=== PATIENT | male | born 1935 | race Caucasian/White ===

== ENCOUNTER → 2016-07-04 | Outpatient (REF) | payer OTHER ==
[~2016-07-04] MED LIST: /AUGM875TA OR; /TAMS4CA OR; ACET65TA OR; ASPI81TA83 OR; CAPT12.5 OR; CARV6.25 OR; COLA100C2 OR; DIFL200T OR; FLAG500T OR; GLIM1TAB OR; INSULANT SC; LANO0.252 OR; MAGN500T2 OR; POTA20TA2 PO; POTA75TA OR; PROZ20CA OR; SIMV10TA2 OR; SPIR25TA2 OR; SYNT125T OR; VICO5TAB OR; VITAMIN D50000 UNT OR; indapamide OR; januvia OR
[2016-07-04 14:18] LABS: ALBUMIN 3.4 GM/DL (3.2-5.2); CALCIUM LEVEL 9.1 MG/DL (8.8-10.2); CREATININE FOR GFR 1.45 MG/DL (0.70-1.30); PHOSPHORUS LEVEL 3.3 MG/DL (2.5-4.9); POTASSIUM SERUM 4.4 MEQ/L (3.5-5.1)
== END ==
LOC: M LABDRAW1 13:28
PROVIDERS: ATTEND Physician Assistant
DX: I50.42 Chronic combined systolic (congestive) and diastolic (congestive) heart failure (principal)

== ENCOUNTER → 2016-09-15 | Outpatient (REF) | payer OTHER ==
[2016-09-15 13:53] LABS: ALBUMIN 3.4 GM/DL (3.2-5.2); ALBUMIN/GLOBULIN RATIO 1.06 (1.00-1.93); BILIRUBIN,TOTAL 1.5 MG/DL (0.2-1.0); CALCIUM LEVEL 8.8 MG/DL (8.8-10.2); CREATININE FOR GFR 1.4 MG/DL (0.70-1.30); FREE T4 1.43 NG/DL (0.76-1.46); POTASSIUM SERUM 4.5 MEQ/L (3.5-5.1); TOTAL PROTEIN 6.6 GM/DL (6.4-8.2)
== END ==
LOC: M LABDRAW1 12:03
PROVIDERS: ATTEND Emergency Medicine
DX: E11.9 Type 2 diabetes mellitus without complications (principal); I10 Essential (primary) hypertension; E78.2 Mixed hyperlipidemia; E55.9 Vitamin D deficiency, unspecified; E03.9 Hypothyroidism, unspecified

== ENCOUNTER → 2016-12-19 | Outpatient (REF) | payer OTHER ==
[~2016-12-19] MED LIST changes: +AMIO200T PO; +ASPI81TA85 PO; +CARV6.25 PO; +DIGO0.12 PO; +FLOM5CAP PO; +FLUO20CA19 PO; +GLIM4TAB PO; +INDA25TAB PO; +INSULADS INJ; +INVO300T PO; +JANU100T PO; +LEVO100T5 PO; +LEVO125T4 PO; +LISI-542 PO; +MAGN1TAB25 PO; +SIMV40TA2 PO; +SPIR25TA2 PO; +TYLE325T5 PO; +VITA20008 PO
== END ==
LOC: M LABDRAW1 07:36
PROVIDERS: ATTEND Emergency Medicine
DX: E11.9 Type 2 diabetes mellitus without complications (principal)

== ENCOUNTER → 2017-01-12 | Outpatient (CLI) | payer OTHER ==
--- NOTE | 2017-01-13 01:54 | REP ---
Clinical: Hip pain and sciatica. Technique: Neutral and frog lateral views of the right hip. Findings: Moderate arthritic changes include increased sclerosis and subtle spurring along the acetabular roof with associated joint space narrowing. The femoral head/neck appears normal. Enthesopathy along the visualized pelvis and femoral trochanter noted. No acute fracture dislocation. Vascular calcifications identified. Impression: Moderate arthritic changes. Signed by Kofi Lutz MD 01/13/2017 01:45 A
--- NOTE | 2017-01-13 01:55 | REP ---
Clinical: Lumbar pain. Lumbago. Technique: AP, lateral, bilateral oblique and coned-down views of the lumbosacral spine. Findings: Straightening of normal lordosis is appreciated along with moderate/advanced multilevel degenerative disc osteophyte complexes. Findings include osteophytosis, endplate sclerosis, disc space narrowing and hypertrophic facet changes which are most pronounced at the L3-4, and L5-S1 levels. No acute fracture / compression injury or subluxation. Impression: Moderate/advanced multilevel degenerative changes. Signed by Kofi Lutz MD 01/13/2017 01:46 A
--- NOTE | 2017-01-13 01:56 | REP ---
Clinical: Hip pain and sciatica. Technique: Neutral and frog lateral views of the left hip. Findings: Moderate arthritic changes include increased sclerosis and subtle spurring along the acetabular roof with associated joint space narrowing. The femoral head/neck appears normal. Enthesopathy along the visualized pelvis and femoral trochanter noted. No acute fracture dislocation. Vascular calcifications identified. Impression: Moderate arthritic changes. Signed by Kofi Lutz MD 01/13/2017 01:46 A
== END ==
LOC: M WUC 16:28
PROVIDERS: ATTEND Physician Assistant
DX: M54.41 Lumbago with sciatica, right side (principal); M16.0 Bilateral primary osteoarthritis of hip; M25.78 Osteophyte, vertebrae

== ENCOUNTER → 2017-02-02 | Outpatient (REF) | payer OTHER ==
[2017-02-02 12:16] LABS: ALBUMIN 3.5 GM/DL (3.2-5.2); CALCIUM LEVEL 9.1 MG/DL (8.8-10.2); CREATININE FOR GFR 1.69 MG/DL (0.70-1.30); GLOMERULAR FILTRATION RATE 41.9 (>42); MAGNESIUM LEVEL 2.5 MG/DL (1.8-2.4); PHOSPHORUS LEVEL 3.4 MG/DL (2.5-4.9); POTASSIUM SERUM 4.7 MEQ/L (3.5-5.1)
== END ==
LOC: M LABDRAW1 11:28
PROVIDERS: ATTEND Physician Assistant
DX: I50.42 Chronic combined systolic (congestive) and diastolic (congestive) heart failure (principal); I47.2 Ventricular tachycardia

== ENCOUNTER 2017-02-06 07:18 | Inpatient (IN) | payer OTHER, MEDICARE ==
[~2017-02-06] VITALS: Ht 175.3 cm; Wt 115.3 kg
[~2017-02-06 07:18] MED LIST changes: -AMIO200T PO; -ASPI81TA85 PO; -CARV6.25 PO; -DIGO0.12 PO; -FLOM5CAP PO; -FLUO20CA19 PO; -GLIM4TAB PO; -INDA25TAB PO; -INSULADS INJ; -INVO300T PO; -JANU100T PO; -LEVO100T5 PO; -LEVO125T4 PO; -LISI-542 PO; -MAGN1TAB25 PO; -SIMV40TA2 PO; -SPIR25TA2 PO; -TYLE325T5 PO; -VITA20008 PO
[2017-02-06] MEDS ORDERED: ONDANSETRON 4MG/2ML VIAL (J2405) As Ordered ONE (07:39)
[2017-02-06] MEDS ORDERED: NS 500 ML IV ONE (07:45)
[2017-02-06] MEDS ORDERED: ONDANSETRON 4MG/2ML VIAL (J2405) IV ONE (07:45)
[2017-02-06 08:08] LABS: BASO % 0.3 % (0.0-1.0); EOS # 0.1 K/mm3 (0.0-0.50); EOS % 0.8 % (0.0-3.0); LARGE UNSTAINED CELL # 0.3 K/mm3 (0.0-0.4); LARGE UNSTAINED CELL % 2.5 % (0.0-4.0); LYMPH # 1.6 K/mm3 (1.5-4.5); LYMPH % 11.2 % (24.0-44.0); MEAN CORPUSCULAR HEMOGLOBIN 30.9 pg (27.0-33.0); MEAN CORPUSCULAR HGB CONC 34.2 g/dl (32.0-36.5); MEAN CORPUSCULAR VOLUME 90.3 fl (80.0-96.0); MONO # 0.9 K/mm3 (0.0-0.8); MONO % 7.5 % (0.0-5.0); NEUTROPHILS # 9.4 K/mm3 (1.8-7.7); NEUTROPHILS % 77.8 % (36.0-66.0); PLATELET COUNT, AUTOMATED 208 k/mm3 (150-450); RED CELL DISTRIBUTION WIDTH 13.5 % (11.5-14.5); WHITE BLOOD COUNT 12.1 K/mm3 (4.0-10.0)
[2017-02-06 08:22] LABS: INR 1.01
[2017-02-06 08:32] LABS: ALBUMIN/GLOBULIN RATIO 1.03 (1.00-1.93); ALKALINE PHOSPHATASE 68 U/L (45-117); ALT/SGPT 35 U/L (12-78); ANION GAP 14 MEQ/L (8-16); AST/SGOT 21 U/L (15-37); BILIRUBIN,DIRECT 0.4 MG/DL (0.0-0.2); BILIRUBIN,TOTAL 1.9 MG/DL (0.2-1.0); BLOOD UREA NITROGEN 40 MG/DL (7-18); CALCIUM LEVEL 9.7 MG/DL (8.8-10.2); CARBON DIOXIDE LEVEL 21 MEQ/L (21-32); CHLORIDE LEVEL 101 MEQ/L (98-107); CREATININE FOR GFR 2.09 MG/DL (0.70-1.30); GLOMERULAR FILTRATION RATE 32.8 (>42); GLUCOSE, FASTING 210 MG/DL (83-110); POTASSIUM SERUM 4.7 MEQ/L (3.5-5.1); SODIUM LEVEL 136 MEQ/L (136-145); TOTAL PROTEIN 7.9 GM/DL (6.4-8.2)
[2017-02-06] MEDS ORDERED: LEVEMIR (INSULIN DETEMIR) 1 UNITS/0.01ML SC SCH (09:00)
--- NOTE | 2017-02-06 10:43 | ECGEPIP ---
Stationary ECG Study [facility] - ED Test Date: 2017-02-06 Pat Name: ABHI DYE Department: Room: - Gender: M Ui U[employer] Developer: sb : [id number] Requested By: MARIJA Syed Order Number: [id number] Reading MD: Porsha Valderrama Measurements Intervals Irons Rate: 85 P: 45 CO: 158 QRS: 182 QRSD: 246 T: 76 QT: 517 QTc: 616 Interpretive Statements ELECTRONIC VENTRICULAR PACEMAKER ABNORMAL RHYTHM ECG SIMILAR 03/25/13 Electronically Signed On 02-06-2017 10:42:58 EDT by Porsha Valderrama
[2017-02-06] MEDS ORDERED: ONDANSETRON 4MG/2ML VIAL (J2405) IV PRN (10:45)
[2017-02-06] MEDS ORDERED: ACETAMINOPHEN TAB 650MG DOSE (2X325MG) PO PRN (10:45)
[2017-02-06] MEDS ORDERED: SODIUM CHLORIDE 0.9% 1000 ML IV ONE ×2 (10:45→16:15)
[2017-02-06] MEDS ORDERED: CARV6.25 PO (10:53)
[2017-02-06] MEDS ORDERED: ASPI81TA85 PO (10:53)
[2017-02-06] MEDS ORDERED: TYLE325T5 PO (10:53)
[2017-02-06] MEDS ORDERED: DIGO0.12 PO (10:53)
[2017-02-06] MEDS ORDERED: LEVO125T4 PO (10:56)
[2017-02-06] MEDS ORDERED: INSULADS INJ (10:56)
[2017-02-06] MEDS ORDERED: GLIM4TAB PO (10:56)
[2017-02-06] MEDS ORDERED: FLUO20CA19 PO (10:56)
[2017-02-06] MEDS ORDERED: SIMV40TA2 PO (10:58)
[2017-02-06] MEDS ORDERED: VITA20008 PO (10:58)
[2017-02-06] MEDS ORDERED: FLOM5CAP PO (10:58)
[2017-02-06] MEDS ORDERED: INDA25TAB PO (10:59)
[2017-02-06] MEDS ORDERED: JANU100T PO (10:59)
[2017-02-06] MEDS ORDERED: NS 1,500 ML IV SCH (11:00)
[2017-02-06] MEDS ORDERED: AMIO200T PO (11:01)
[2017-02-06] MEDS ORDERED: LISI-542 PO (11:01)
[2017-02-06] MEDS ORDERED: INVO300T PO (11:01)
[2017-02-06] MEDS ORDERED: MAGN1TAB25 PO (11:01)
[2017-02-06] MEDS ORDERED: SPIR25TA2 PO (11:01)
[2017-02-06 11:57] VITALS: BP 118/66
[2017-02-06] MEDS ORDERED: GLUCOSE 4 GM CHEW TABLET PO PRN (13:00)
[2017-02-06] MEDS ORDERED: GLUCAGON FOR INJ 1 MG VIAL (J1610) SC PRN (13:00)
[2017-02-06] MEDS ORDERED: DEXTROSE 50% 50 ML SYRINGE IV PRN (13:00)
[2017-02-06] MEDS: HEPARIN SOD (PORCINE) 5000 UNITS/ML VIAL SC SCH ×2 (13:47→21:23)
[2017-02-06 14:00] VITALS: BP 128/69
[2017-02-06] MEDS ORDERED: NYSTATIN CREAM 15 GM TOP PRN (14:45)
--- NOTE | 2017-02-06 16:35 | HPEPDOC ---
General Date of Admission Feb 06, 2017 at 10:37 Primary Care Physician: MARCO GOMEZ MD Chief Complaint The patient is a 81-year-old male admitted with a reason for visit of Diarrhea. History of Present Illness 81-year-old male with past medical history of hypertension, diabetes mellitus, dyslipidemia, atrial fibrillation not on anticoagulation, systolic congestive heart failure with an EF of 20% in 2012 status post ICD, CAD, hypothyroidism, BPH, and chronic kidney disease presents to the ER with a chief complaint of multiple episodes of diarrhea over the last 3 days. The patient states that he has been having at least 10 loose, nonbloody bowel movements daily for the last 3 days. He denies any associated fevers, chills, or abdominal pain. He reports that this culminated today with 3 episodes of nausea and vomiting as well. He denies taking any antibiotics recently, any sick contacts, or any ingestion of any foreign foods. The patient denies noting any blood in his vomitus or stools or any dark color stools. The patient denies any other acute complaints at this time. In the ER, the patient was noted to have an elevated white count of 12K, and acute kidney injury superimposed on chronic kidney disease. The patient will be admitted to the hospitalist service for further evaluation and management. Home Medications Scheduled Amiodarone HCl (Amiodarone HCl) 200 Mg Tab, 200 MG PO DAILY, (Reported) Aspirin (Aspir-81) 81 Mg Tab, 81 MG PO DAILY, (Reported) Canagliflozin (Invokana) 300 Mg Tab, 300 MG PO DAILY, (Reported) Carvedilol (Carvedilol) 6.25 Mg Tab, 6.25 MG PO BID, (Reported) Cholecalciferol (Vitamin D3) 2,000 Unit Tab, 2,000 UNIT PO DAILY, (Reported) Digoxin (Digoxin) 0.125 Mg Tab, 0.125 MG PO DAILY, (Reported) Fluoxetine Hcl (Fluoxetine HCl) 20 Mg Cap, 20 MG PO DAILY, (Reported) Glimepiride (Glimepiride) 4 Mg Tab, 8 MG PO DAILY, (Reported) Indapamide (Indapamide) 2.5 Mg Tab, 2.5 MG PO DAILY, (Reported) Insulin Glargine (Lantus) 100 Unit/Ml Inj, 65 UNIT INJ DAILY, (Reported) Levothyroxine Sodium (Synthroid) 125 Mcg Tab, 125 MCG PO DAILY, (Reported) Lisinopril (Lisinopril) 5 Mg Tab, 5 MG PO DAILY, (Reported) Magnesium Oxide (Magnesium) 400 Mg Tab, 1,200 MG PO BID, (Reported) Simvastatin - High Dose (Simvastatin) 40 Mg Tab, 40 MG PO QHS, (Reported) Sitagliptin Phosphate (Januvia) 100 Mg Tab, 100 MG PO DAILY, (Reported) Spironolactone (Spironolactone) 25 Mg Tab, 12.5 MG PO DAILY, (Reported) Tamsulosin Hydrochloride (Flomax) 0.4 Mg Cap, 0.4 MG PO DAILY, (Reported) Scheduled PRN Acetaminophen (Tylenol) 325 Mg Tab, 325 MG PO QID PRN for PAIN, (Reported) Allergies Coded Allergies: Azithromycin (Verified Allergy, Unknown, 09/20/12) Past Medical History Medical History As noted in HPI. Surgical History ICD placement in 2011, lateral internal sphincterotomy, rectal fistula repair Family History Significant Family History: No pertinent family hx Social History * Smoker: Denies Alcohol: Denies Drugs: denies Ambulates with a cane, lives by himself, is functionally independent. Daughter checks up on him from time to time. Retired from the [employer] business. Review of Symptoms Other systems 10 point review of systems negative unless otherwise specified in HPI. Physical Examination General Exam: Positive: Alert, Cooperative, No Acute Distress ENT Exam: Positive: Atraumatic, Mucous membr. moist/pink Neck Exam: Negative: JVD Chest Exam: Positive: Clear to auscultation, Normal air movement Heart Exam: Positive: Rate Normal, Normal S1, Normal S2 Abdomen Exam: Positive: Soft, Negative: Tenderness Extremity Exam: Negative: Tenderness, Swelling Psych Exam: Positive: Oriented x 3 Vital Signs Vital Signs Date Time Temp Pulse Resp B/P (MAP) Pulse Ox O2 Delivery O2 Flow Rate FiO2 02/06/17 14:00 96.3 78 18 128/69 (88) 97 Room Air Laboratory Data Labs 24H Laboratory Tests 2 02/06/17 07:53: White Blood Count 12.1H, Red Blood Count 6.35H, Hemoglobin 19.6H, Hematocrit 57.4H, Mean Corpuscular Volume 90.3, Mean Corpuscular Hemoglobin 30.9, Mean Corpuscular Hemoglobin Concent 34.2, Red Cell Distribution Width 13.5, Platelet Count 208, Neutrophils (%) (Auto) 77.8H, Lymphocytes (%) (Auto) 11.2L, Monocytes (%) (Auto) 7.5H, Eosinophils (%) (Auto) 0.8, Basophils (%) (Auto) 0.3 , Neutrophils # (Auto) 9.4H, Lymphocytes # (Auto) 1.6, Monocytes # (Auto) 0.9H, Eosinophils # (Auto) 0.1, Basophils # (Auto) 0.0, Large Unclassified Cells % 2.5 , Large Unclassified Cells # 0.3, Prothrombin Time 13.4, Prothromb Time International Ratio 1.01, Anion Gap 14, Glomerular Filtration Rate 32.8L, Calcium Level 9.7, Aspartate Amino Transf (AST/SGOT) 21, Alanine Aminotransferase (ALT/SGPT) 35, Alkaline Phosphatase 68, Total Bilirubin 1.9H, Direct Bilirubin 0.4H, Total Creatine Kinase 101, Creatine Kinase MB 2.7, Creatine Kinase MB Relative Index 2.67, Troponin I < 0.02, Total Protein 7.9, Albumin 4.0, Albumin/Globulin Ratio 1.03, Lipase 124 02/06/17 07:54: Lactic Acid Level 3.2*H 02/06/17 12:13: Lactic Acid Followup at 4 Hours 2.6*H 02/06/17 13:07: Bedside Glucose (Misc Panel) 155H 02/06/17 14:28: Urine Appearance HAZY, Urine Color YELLOW, Urine pH 5.0, Urine Specific [place] 1.027, Urine Protein NEGATIVE, Urine Glucose (UA) 3+H, Urine Ketones NEGATIVE, Urine Urobilinogen 0.2, Urine Bilirubin NEGATIVE, Urine Leukocyte Esterase NEGATIVE, Urine Blood NEGATIVE, Urine Nitrite NEGATIVE, Urine WBC (Auto) 1, Urine RBC (Auto) 2, Urine Hyaline Casts (Auto) 8, Urine Bacteria (Auto) NEGATIVE , Urine Squamous Epithelial Cells 0, Urine Mucus (Auto) SMALL, Urine Sperm (Auto ) CBC/BMP Laboratory Tests 02/06/17 07:53 Red Blood Count 6.35 H, Mean Corpuscular Volume 90.3, Mean Corpuscular Hemoglobin 30.9, Mean Corpuscular Hemoglobin Concent 34.2, Red Cell Distribution Width 13.5, Neutrophils (%) (Auto) 77.8 H, Lymphocytes (%) (Auto) 11.2 L, Monocytes (%) (Auto) 7.5 H, Eosinophils (%) (Auto) 0.8, Basophils (%) ( Auto) 0.3, Neutrophils # (Auto) 9.4 H, Lymphocytes # (Auto) 1.6, Monocytes # ( Auto) 0.9 H, Eosinophils # (Auto) 0.1, Basophils # (Auto) 0.0 Microbiology Microbiology 02/06/17 Blood Culture, Received Pending 02/06/17 Blood Culture, Received Pending 02/06/17 Gastrointestinal Tract Panel (PCR), Received Pending Plan / VTE VTE Prophylaxis Ordered?: Yes Plan Plan Intractable nausea, vomiting, diarrhea We will admit the patient to med/surge GI panel ordered IV fluid hydration Lactic acid level noted to be 3.2, likely 2/2 volume depletion Abdomen soft, non-tender, non-distended--with no complaints of abdominal pain in history Patient does not have risk factors for C. Diff (Recent Abx use, sick contacts, recent hospitalization). However we will send for stool studies; Viral Gasteroenteritis vs C. Diff Acute Kidney Injury Superimposed on CKD Stage IIIB Baseline serum creatinine noted to be between 1.35-1.45 Serum creatinine 2.1 on admission-likely secondary to volume depletion from diarrhea We will hold nephrotoxins at this time IV fluid hydration ordered We will continue to monitor the patient's BMP Lactic acidosis likely 2/2 above IV fluid hydration ordered We will continue to monitor patient's lactic acid levels History of systolic congestive heart failure, with severe reduction of EF (20%) on ECHO in 2011, CAD History of ICD placement We will withhold the patient's diuretic therapy at this time as the patient is significantly volume depleted IV fluid hydration ordered with caution of the patient's history of systolic CHF in mind Patient follows with Dr. 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
[2017-02-06] MEDS: HumaLOG INSULIN (NovoLOG) PER UNIT SC SCH ×2 (18:23→20:49)
[2017-02-06] MEDS: ASPIRIN 81 MG ENTERIC TAB PO SCH (18:25)
[2017-02-06] MEDS: VITAMIN D 1,000 INTERNATIONAL UNITS TABLET PO SCH (18:25)
[2017-02-06] MEDS: FLUoxetine 20 MG CAP PO SCH (18:25)
[2017-02-06] MEDS: AMIODARONE 200 MG TAB (PACERONE) PO SCH (18:26)
[2017-02-06] MEDS ORDERED: LOPERAMIDE 2 MG CAP PO PRN (20:15)
[2017-02-06] MEDS: SIMVASTATIN 40 MG TAB PO SCH (21:23)
[2017-02-06] MEDS: CARVedilol 6.25 MG TAB PO SCH (21:23)
[2017-02-06 22:00] VITALS: BP 130/57
[2017-02-07] MEDS: HEPARIN SOD (PORCINE) 5000 UNITS/ML VIAL SC SCH ×3 (05:50→22:18)
[2017-02-07 06:00] VITALS: BP 125/55
[2017-02-07] MEDS ORDERED: LEVOTHYROXINE 125MCG TABLET (0.125MG) PO SCH (06:00)
[2017-02-07 06:03] LABS: BASO % 0.2 % (0.0-1.0); EOS # 0.2 K/mm3 (0.0-0.50); EOS % 2.6 % (0.0-3.0); LARGE UNSTAINED CELL # 0.2 K/mm3 (0.0-0.4); LARGE UNSTAINED CELL % 2.5 % (0.0-4.0); LYMPH % 12.5 % (24.0-44.0); MEAN CORPUSCULAR HEMOGLOBIN 30.4 pg (27.0-33.0); MEAN CORPUSCULAR HGB CONC 33.1 g/dl (32.0-36.5); MEAN CORPUSCULAR VOLUME 91.8 fl (80.0-96.0); MONO # 0.7 K/mm3 (0.0-0.8); MONO % 10.4 % (0.0-5.0); NEUTROPHILS % 71.9 % (36.0-66.0); PLATELET COUNT, AUTOMATED 162 k/mm3 (150-450); RED CELL DISTRIBUTION WIDTH 13.4 % (11.5-14.5); WHITE BLOOD COUNT 6.9 K/mm3 (4.0-10.0)
[2017-02-07 06:20] LABS: BILIRUBIN,DIRECT 0.4 MG/DL (0.0-0.2); BILIRUBIN,TOTAL 2.2 MG/DL (0.2-1.0); CALCIUM LEVEL 8.4 MG/DL (8.8-10.2); CREATININE FOR GFR 1.59 MG/DL (0.70-1.30); GLOMERULAR FILTRATION RATE 44.9 (>42); MAGNESIUM LEVEL 2.2 MG/DL (1.8-2.4); POTASSIUM SERUM 4.7 MEQ/L (3.5-5.1); TOTAL PROTEIN 6.6 GM/DL (6.4-8.2)
[2017-02-07 06:28] LABS: ALBUMIN/GLOBULIN RATIO 0.78 (1.00-1.93)
[2017-02-07 06:32] LABS: ALBUMIN 2.9 GM/DL (3.2-5.2)
[2017-02-07 06:35] LABS: DIGOXIN LEVEL 0.9 NG/ML (0.5-2.0); FREE T4 1.82 NG/DL (0.76-1.46)
[2017-02-07] MEDS: HumaLOG INSULIN (NovoLOG) PER UNIT SC SCH ×4 (09:08→20:48)
[2017-02-07] MEDS: ASPIRIN 81 MG ENTERIC TAB PO SCH (09:11)
[2017-02-07] MEDS: AMIODARONE 200 MG TAB (PACERONE) PO SCH (09:11)
[2017-02-07] MEDS: CARVedilol 6.25 MG TAB PO SCH ×2 (09:11→20:47)
[2017-02-07] MEDS: DIGOXIN 0.125 MG TAB PO SCH (09:11)
[2017-02-07] MEDS: VITAMIN D 1,000 INTERNATIONAL UNITS TABLET PO SCH (09:11)
[2017-02-07] MEDS: FLUoxetine 20 MG CAP PO SCH (09:11)
[2017-02-07 14:00] VITALS: BP 96/53
--- NOTE | 2017-02-07 14:13 | IPNPDOC ---
Subjective Date Seen The patient was seen on 02/07/17. Subjective Chief Complaint/HPI Patient seen and examined at the bedside. States that he is feeling much better today, and notes that he has not had a loose bowel movement since 2 AM yesterday morning. Denies any abdominal pain, and notes that he is able to tolerate a diet without any problems this morning. Objective Physical Examination General Exam: Positive: Alert, Cooperative, No Acute Distress ENT Exam: Positive: Atraumatic, Mucous membr. moist/pink Neck Exam: Negative: JVD Chest Exam: Positive: Clear to auscultation, Normal air movement Heart Exam: Positive: Rate Normal, Normal S1, Normal S2 Abdomen Exam: Positive: Soft, Negative: Tenderness Extremity Exam: Negative: Tenderness, Swelling Psych Exam: Positive: Oriented x 3 Assessment /Plan Plan/VTE VTE Prophylaxis Ordered?: Yes Plan Intractable nausea, vomiting, diarrhea, resolved Patient notes that he is feeling much better this morning and tolerated his breakfast without any issues GI panel negative IV fluid discontinued Abdomen soft, non-tender, non-distended--with no complaints of abdominal pain today Diet advanced to Carb Consistent We will cont to monitor the patient's progress Acute Kidney Injury Superimposed on CKD Stage IIIB Baseline serum creatinine noted to be between 1.35-1.45 Serum creatinine 2.1-->1.59 We will hold nephrotoxins at this time Encourage PO Hydration We will continue to monitor the patient's BMP Lactic acidosis likely 2/2 above, resolved s/p IV fluid hydration History of systolic congestive heart failure, with severe reduction of EF (20%) on ECHO in 2011, CAD History of ICD placement Patient appears euvolemic at this time following hydration Patient follows with Dr. 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 Continue amiodarone, digoxin, Coreg, aspirin Diabetes mellitus We will hold the patient's basal insulin at this time as his blood sugar levels have been running on the lower side Advanced to Carb Consistent diet today Insulin sliding scale ordered for additional coverage Dyslipidemia Continue statin Hypothyroidism TSH level noted to be low, with elevated T4 level Levothyroxine dose changed to 100 mcg--I have advised the patient to follow up as an outpatient for repeat lab work in 6-8 weeks Depression, stable Continue fluoxetine DVT prophylaxis Heparin subcutaneously Dispo--Anticipate D/C in the AM pending continued clinical improvement [facility] Signs/I&O Vital Signs Date Time Temp Pulse Resp B/P (MAP) Pulse Ox O2 Delivery O2 Flow Rate FiO2 02/07/17 09:11 65 02/07/17 09:11 125/55 02/07/17 06:00 97.3 18 96 Room Air I&O- Last 24 Hours up to 6 AM 02/07/17 05:59 Intake Total 2720 ml Output Total 775 ml Balance 1945 ml Laboratory Data 24H LABS Laboratory Tests 2 02/06/17 14:28: Urine Appearance HAZY, Urine Color YELLOW, Urine pH 5.0, Urine Specific [place] 1.027, Urine Protein NEGATIVE, Urine Glucose (UA) 3+H, Urine Ketones NEGATIVE, Urine Urobilinogen 0.2, Urine Bilirubin NEGATIVE, Urine Leukocyte Esterase NEGATIVE, Urine Blood NEGATIVE, Urine Nitrite NEGATIVE, Urine WBC (Auto) 1, Urine RBC (Auto) 2, Urine Hyaline Casts (Auto) 8, Urine Bacteria (Auto) NEGATIVE , Urine Squamous Epithelial Cells 0, Urine Mucus (Auto) SMALL, Urine Sperm (Auto ) 02/06/17 16:08: Lactic Acid Level 2.6*H 02/06/17 16:23: Bedside Glucose (Misc Panel) 150H 02/06/17 20:32: Bedside Glucose (Misc Panel) 115H 02/06/17 20:48: Lactic Acid Followup at 4 Hours 2.0 02/07/17 05:32: White Blood Count 6.9, Red Blood Count 5.56, Hemoglobin 16.9#, Hematocrit 51.1, Mean Corpuscular Volume 91.8, Mean Corpuscular Hemoglobin 30.4, Mean Corpuscular Hemoglobin Concent 33.1, Red Cell Distribution Width 13.4, Platelet Count 162, Neutrophils (%) (Auto) 71.9H, Lymphocytes (%) (Auto) 12.5L, Monocytes (%) (Auto) 10.4H, Eosinophils (%) (Auto) 2.6, Basophils (%) (Auto) 0.2 , Neutrophils # (Auto) 5.0, Lymphocytes # (Auto) 1.0L, Monocytes # (Auto) 0.7, Eosinophils # (Auto) 0.2, Basophils # (Auto) 0.0, Large Unclassified Cells % 2.5 , Large Unclassified Cells # 0.2, Anion Gap 9, Glomerular Filtration Rate 44.9, Calcium Level 8.4L, Magnesium Level 2.2, Aspartate Amino Transf (AST/SGOT) 14L, Alanine Aminotransferase (ALT/SGPT) 22, Alkaline Phosphatase 51, Total Bilirubin 2.2H, Direct Bilirubin 0.4H, Total Protein 6.6, Albumin 2.9#L, Albumin /Globulin Ratio 0.78L, Thyroid Stimulating Hormone (TSH) 0.033L, Free Thyroxine 1.82H, Digoxin Level 0.9 02/07/17 11:28: Bedside Glucose (Misc Panel) 129H CBC/BMP Laboratory Tests 02/07/17 05:32 Red Blood Count 5.56, Mean Corpuscular Volume 91.8, Mean Corpuscular Hemoglobin 30.4, Mean Corpuscular Hemoglobin Concent 33.1, Red Cell Distribution Width 13.4 , Neutrophils (%) (Auto) 71.9 H, Lymphocytes (%) (Auto) 12.5 L, Monocytes (%) ( Auto) 10.4 H, Eosinophils (%) (Auto) 2.6, Basophils (%) (Auto) 0.2, Neutrophils # (Auto) 5.0, Lymphocytes # (Auto) 1.0 L, Monocytes # (Auto) 0.7, Eosinophils # (Auto) 0.2, Basophils # (Auto) 0.0 Microbiology Microbiology 02/06/17 Blood Culture - Preliminary, Resulted No growth after 24 hours . All specim... 02/06/17 Blood Culture - Preliminary, Resulted No growth after 24 hours . All specim... 02/06/17 Gastrointestinal Tract Panel (PCR) - Final, Complete THONG WRIGHT MD Feb 07, 2017 14:13
[2017-02-07] MEDS: SIMVASTATIN 40 MG TAB PO SCH (20:47)
[2017-02-07 20:55] VITALS: BP 130/66
[2017-02-08 05:40] VITALS: BP 132/69
[2017-02-08] MEDS: HEPARIN SOD (PORCINE) 5000 UNITS/ML VIAL SC SCH (05:48)
[2017-02-08] MEDS ORDERED: LEVOTHYROXINE 100MCG TABLET (0.1MG) PO SCH (06:00)
[2017-02-08 06:23] LABS: BASO % 0.4 % (0.0-1.0); EOS # 0.3 K/mm3 (0.0-0.50); EOS % 4.3 % (0.0-3.0); LARGE UNSTAINED CELL # 0.2 K/mm3 (0.0-0.4); LARGE UNSTAINED CELL % 3.1 % (0.0-4.0); LYMPH # 1.5 K/mm3 (1.5-4.5); LYMPH % 18.7 % (24.0-44.0); MEAN CORPUSCULAR HEMOGLOBIN 30.3 pg (27.0-33.0); MEAN CORPUSCULAR VOLUME 91.9 fl (80.0-96.0); MONO # 0.8 K/mm3 (0.0-0.8); MONO % 12.5 % (0.0-5.0); NEUTROPHILS # 4.1 K/mm3 (1.8-7.7); PLATELET COUNT, AUTOMATED 162 k/mm3 (150-450); RED CELL DISTRIBUTION WIDTH 13.4 % (11.5-14.5); WHITE BLOOD COUNT 6.7 K/mm3 (4.0-10.0)
[2017-02-08 06:43] LABS: CALCIUM LEVEL 8.5 MG/DL (8.8-10.2); CREATININE FOR GFR 1.44 MG/DL (0.70-1.30); GLOMERULAR FILTRATION RATE 50.4 (>42); MAGNESIUM LEVEL 1.9 MG/DL (1.8-2.4); POTASSIUM SERUM 4.4 MEQ/L (3.5-5.1)
[2017-02-08] MEDS: AMIODARONE 200 MG TAB (PACERONE) PO SCH (08:04)
[2017-02-08] MEDS: HumaLOG INSULIN (NovoLOG) PER UNIT SC SCH (08:04)
[2017-02-08] MEDS: ASPIRIN 81 MG ENTERIC TAB PO SCH (08:04)
[2017-02-08] MEDS: VITAMIN D 1,000 INTERNATIONAL UNITS TABLET PO SCH (08:04)
[2017-02-08] MEDS: FLUoxetine 20 MG CAP PO SCH (08:05)
[2017-02-08 08:07] VITALS: BP 132/69
[2017-02-08] MEDS: CARVedilol 6.25 MG TAB PO SCH (08:07)
[2017-02-08] MEDS: DIGOXIN 0.125 MG TAB PO SCH (08:07)
[2017-02-08] MEDS ORDERED: LEVO100T5 PO (10:01)
--- NOTE | 2017-02-08 15:13 | DS.PDOC ---
Discharge Summary General Date of Admission Feb 06, 2017 at 10:37 Date of Discharge 02/08/17 Discharge Summary PROCEDURES PERFORMED DURING STAY: None. ADMITTING/DISCHARGE DIAGNOSES: Intractable nausea, vomiting, diarrhea Lactic acidosis likely 2/2 above Acute Kidney Injury Superimposed on CKD Stage IIIB History of systolic congestive heart failure, with severe reduction of EF (20%) on ECHO in 2011, CAD Atrial fibrillation, stable Diabetes mellitus COMPLICATIONS/CHIEF COMPLAINT: Diarrhea. HISTORY OF PRESENT ILLNESS: . 81-year-old male with past medical history of hypertension, diabetes mellitus, dyslipidemia, atrial fibrillation not on anticoagulation, systolic congestive heart failure with an EF of 20% in 2012 status post ICD, CAD, hypothyroidism, BPH, and chronic kidney disease presents to the ER with a chief complaint of multiple episodes of diarrhea over the last 3 days. The patient states that he has been having at least 10 loose, nonbloody bowel movements daily for the last 3 days. He denies any associated fevers, chills, or abdominal pain. He reports that this culminated today with 3 episodes of nausea and vomiting as well. He denies taking any antibiotics recently, any sick contacts, or any ingestion of any foreign foods. The patient denies noting any blood in his vomitus or stools or any dark color stools. The patient denies any other acute complaints at this time. In the ER, the patient was noted to have an elevated white count of 12K, and acute kidney injury superimposed on chronic kidney disease. The patient will be admitted to the hospitalist service for further evaluation and management. During hospitalization, the patient received IV fluid hydration. Stool studies came back negative for any acute infections. The patient's diarrhea subsequently subsided. The patient no longer had any complaints of nausea or vomiting. The patient was started on a clear liquid diet and advance as tolerated. At this time, the patient states that his nausea, vomiting, and diarrhea have completely resolved and that he is eager to return home. Of note, the patient was noted to have a low TSH level and an elevated free T4 level. I have reduced the patient's supplemental levothyroxine dose and asked the patient to follow-up with his primary care physician for repeat lab work and further titration of medication as indicated. He is to follow-up with his primary care physician within one week. He has been consulted to return to the ER for any acute emergencies. DISCHARGE MEDICATIONS: Please see below. ALLERGIES: Please see below. PHYSICAL EXAMINATION ON DISCHARGE: VITAL SIGNS: Please see below. General Exam: Positive: Alert, Cooperative, No Acute Distress ENT Exam: Positive: Atraumatic, Mucous membr. moist/pink Neck Exam: Negative: JVD Chest Exam: Positive: Clear to auscultation, Normal air movement Heart Exam: Positive: Rate Normal, Normal S1, Normal S2 Abdomen Exam: Positive: Soft, Negative: Tenderness Extremity Exam: Negative: Tenderness, Swelling Psych Exam: Positive: Oriented x 3 LABORATORY DATA: Please see below. PROGNOSIS: Fair ACTIVITY: As tolerated. DIET: . Carb consistent diet DISCHARGE PLAN: DISPOSITION: Home, Self-Care. DISCHARGE INSTRUCTIONS: 1. . Follow-up with primary care physician within one week 2. . Repeat thyroid function studies in 6-8 weeks 3. . Return to the ER for any acute emergencies DISCHARGE CONDITION: Stable. TIME SPENT ON DISCHARGE: Greater than 30 minutes. Vital Signs/I&Os Vital Signs Date Time Temp Pulse Resp B/P (MAP) Pulse Ox O2 Delivery O2 Flow Rate FiO2 02/08/17 08:07 73 02/08/17 08:07 132/69 02/08/17 05:40 97.8 18 95 Room Air I&O- Last 24 Hours up to 6 AM 02/08/17 06:00 Intake Total 2640 ml Output Total 2270 ml Balance 370 ml Laboratory Data Labs 24H Laboratory Tests 2 02/07/17 16:32: Bedside Glucose (Misc Panel) 145H 02/07/17 20:13: Bedside Glucose (Misc Panel) 144H 02/08/17 05:24: White Blood Count 6.7, Red Blood Count 5.21, Hemoglobin 15.8, Hematocrit 47.8, Mean Corpuscular Volume 91.9, Mean Corpuscular Hemoglobin 30.3, Mean Corpuscular Hemoglobin Concent 33.0, Red Cell Distribution Width 13.4, Platelet Count 162, Neutrophils (%) (Auto) 61.0, Lymphocytes (%) (Auto) 18.7L, Monocytes (%) (Auto) 12.5H, Eosinophils (%) (Auto) 4.3H, Basophils (%) (Auto) 0.4, Neutrophils # (Auto) 4.1, Lymphocytes # (Auto) 1.5, Monocytes # (Auto) 0.8, Eosinophils # (Auto) 0.3, Basophils # (Auto) 0.0, Large Unclassified Cells % 3.1 , Large Unclassified Cells # 0.2, Anion Gap 9, Glomerular Filtration Rate 50.4, Blood Urea Nitrogen 26H, Creatinine 1.44H, Sodium Level 139, Potassium Level 4.4 , Chloride Level 104, Carbon Dioxide Level 26, Calcium Level 8.5L, Magnesium Level 1.9 CBC/BMP Laboratory Tests 02/08/17 05:24 Red Blood Count 5.21, Mean Corpuscular Volume 91.9, Mean Corpuscular Hemoglobin 30.3, Mean Corpuscular Hemoglobin Concent 33.0, Red Cell Distribution Width 13.4 , Neutrophils (%) (Auto) 61.0, Lymphocytes (%) (Auto) 18.7 L, Monocytes (%) ( Auto) 12.5 H, Eosinophils (%) (Auto) 4.3 H, Basophils (%) (Auto) 0.4, Neutrophils # (Auto) 4.1, Lymphocytes # (Auto) 1.5, Monocytes # (Auto) 0.8, Eosinophils # (Auto) 0.3, Basophils # (Auto) 0.0, Calcium Level 8.5 L FSBS Laboratory Tests Test 02/07/17 16:32 02/07/17 20:13 Range/Units Bedside Glucose (Misc Panel) 145 144 83-110 MG/DL Microbiology Microbiology 02/06/17 Blood Culture - Preliminary, Resulted No Growth after 48 hours. All Specime... 02/06/17 Blood Culture - Preliminary, Resulted No Growth after 48 hours. All Specime... 02/06/17 Gastrointestinal Tract Panel (PCR) - Final, Complete Discharge Medications Scheduled Amiodarone HCl (Amiodarone HCl) 200 Mg Tab, 200 MG PO DAILY, (Reported) Aspirin (Aspir-81) 81 Mg Tab, 81 MG PO DAILY, (Reported) Canagliflozin (Invokana) 300 Mg Tab, 300 MG PO DAILY, (Reported) Carvedilol (Carvedilol) 6.25 Mg Tab, 6.25 MG PO BID, (Reported) Cholecalciferol (Vitamin D3) 2,000 Unit Tab, 2,000 UNIT PO DAILY, (Reported) Digoxin (Digoxin) 0.125 Mg Tab, 0.125 MG PO DAILY, (Reported) Fluoxetine Hcl (Fluoxetine HCl) 20 Mg Cap, 20 MG PO DAILY, (Reported) Glimepiride (Glimepiride) 4 Mg Tab, 8 MG PO DAILY, (Reported) Indapamide (Indapamide) 2.5 Mg Tab, 2.5 MG PO DAILY, (Reported) Insulin Glargine (Lantus) 100 Unit/Ml Inj, 65 UNIT INJ DAILY, (Reported) Levothyroxine Sodium (Synthroid) 100 Mcg Tab, 112.5 MCG PO DAILY Lisinopril (Lisinopril) 5 Mg Tab, 5 MG PO DAILY, (Reported) Magnesium Oxide (Magnesium) 400 Mg Tab, 1,200 MG PO BID, (Reported) Simvastatin - High Dose (Simvastatin) 40 Mg Tab, 40 MG PO QHS, (Reported) Sitagliptin Phosphate (Januvia) 100 Mg Tab, 100 MG PO DAILY, (Reported) Spironolactone (Spironolactone) 25 Mg Tab, 12.5 MG PO DAILY, (Reported) Tamsulosin Hydrochloride (Flomax) 0.4 Mg Cap, 0.4 MG PO DAILY, (Reported) Scheduled PRN Acetaminophen (Tylenol) 325 Mg Tab, 325 MG PO QID PRN for PAIN, (Reported) Allergies Coded Allergies: Azithromycin (Verified Allergy, Unknown, 09/20/12) THONG WRIGHT MD Feb 08, 2017 15:13
== END 2017-02-08 11:36 | disposition home or self-care (01) | DRG 392 ==
LOC: M ED 07:18 → M ED INP 10:37 → M MSPAV 11:55
PROVIDERS: ADMIT Internal Medicine; ATTEND Internal Medicine
DX: R19.7 Diarrhea, unspecified (principal); N17.9 Acute kidney failure, unspecified; E87.2 Acidosis; I50.22 Chronic systolic (congestive) heart failure; I13.0 Hypertensive heart and chronic kidney disease with heart failure and stage 1 through stage 4 chronic kidney disease, or unspecified chronic kidney disease; N18.3 Chronic kidney disease, stage 3 (moderate); I48.91 Unspecified atrial fibrillation; F32.9 Major depressive disorder, single episode, unspecified; I25.10 Atherosclerotic heart disease of native coronary artery without angina pectoris; E11.22 Type 2 diabetes mellitus with diabetic chronic kidney disease; E78.5 Hyperlipidemia, unspecified; E03.9 Hypothyroidism, unspecified; Z79.82 Long term (current) use of aspirin; Z79.4 Long term (current) use of insulin; Z79.899 Other long term (current) drug therapy; Z88.1 Allergy status to other antibiotic agents; Z95.810 Presence of automatic (implantable) cardiac defibrillator

== ENCOUNTER → 2017-02-27 | Outpatient (REF) | payer OTHER ==
[~2017-02-27] MED LIST changes: +AMIO200T PO; +ASPI81TA85 PO; +CARV6.25 PO; +DIGO0.12 PO; +FLOM5CAP PO; +FLUO20CA19 PO; +GLIM4TAB PO; +INDA25TAB PO; +INSULADS INJ; +INVO300T PO; +JANU100T PO; +LEVO100T5 PO; +LEVO125T4 PO; +LISI-542 PO; +MAGN1TAB25 PO; +SIMV40TA2 PO; +SPIR25TA2 PO; +TYLE325T5 PO; +VITA20008 PO
[2017-02-27 13:10] LABS: ALBUMIN 3.7 GM/DL (3.2-5.2); CALCIUM LEVEL 9.2 MG/DL (8.8-10.2); CREATININE FOR GFR 1.53 MG/DL (0.70-1.30); PHOSPHORUS LEVEL 3.5 MG/DL (2.5-4.9); POTASSIUM SERUM 4.2 MEQ/L (3.5-5.1)
== END ==
LOC: M LABDRAW1 11:34
PROVIDERS: ATTEND Physician Assistant
DX: I50.42 Chronic combined systolic (congestive) and diastolic (congestive) heart failure (principal)

== ENCOUNTER → 2017-03-23 | Outpatient (REF) | payer OTHER ==
[2017-03-23 14:40] LABS: ALBUMIN 3.4 GM/DL (3.2-5.2); ALBUMIN/GLOBULIN RATIO 1.06 (1.00-1.93); BILIRUBIN,TOTAL 1.1 MG/DL (0.2-1.0); CALCIUM LEVEL 9.2 MG/DL (8.8-10.2); CREATININE FOR GFR 1.56 MG/DL (0.70-1.30); FREE T4 1.32 NG/DL (0.76-1.46); GLOMERULAR FILTRATION RATE 45.9 (>42); POTASSIUM SERUM 4.5 MEQ/L (3.5-5.1); TOTAL PROTEIN 6.6 GM/DL (6.4-8.2)
== END ==
LOC: M LABDRAW1 11:57
PROVIDERS: ATTEND Emergency Medicine
DX: E11.9 Type 2 diabetes mellitus without complications (principal); I10 Essential (primary) hypertension; E78.2 Mixed hyperlipidemia; E03.9 Hypothyroidism, unspecified; E55.9 Vitamin D deficiency, unspecified

== ENCOUNTER → 2017-09-08 | Outpatient (REF) | payer OTHER ==
[2017-09-08 11:19] LABS: ALBUMIN 3.5 GM/DL (3.2-5.2); ANION GAP 6 MEQ/L (8-16); BLOOD UREA NITROGEN 27 MG/DL (7-18); CALCIUM LEVEL 9.2 MG/DL (8.8-10.2); CARBON DIOXIDE LEVEL 31 MEQ/L (21-32); CHLORIDE LEVEL 103 MEQ/L (98-107); CREATININE FOR GFR 1.67 MG/DL (0.70-1.30); GLOMERULAR FILTRATION RATE 42.4 (>35); GLUCOSE, FASTING 92 MG/DL (70-100); MAGNESIUM LEVEL 2.3 MG/DL (1.8-2.4); POTASSIUM SERUM 4.6 MEQ/L (3.5-5.1); SODIUM LEVEL 140 MEQ/L (136-145)
== END ==
LOC: M LABDRAW1 10:20
DX: I50.42 Chronic combined systolic (congestive) and diastolic (congestive) heart failure (principal)

== ENCOUNTER → 2017-09-08 | Outpatient (REF) | payer OTHER ==
[2017-09-08 11:27] LABS: ESTIMATED AVERAGE GLUCOSE 160 MG/DL (60-110); HEMOGLOBIN A1c 7.2 %
[2017-09-08 11:28] LABS: ALBUMIN 3.6 GM/DL (3.2-5.2); ALBUMIN/GLOBULIN RATIO 1.13 (1.00-1.93); ALKALINE PHOSPHATASE 51 U/L (45-117); ALT/SGPT 34 U/L (12-78); ANION GAP 7 MEQ/L (8-16); AST/SGOT 20 U/L (7-37); BLOOD UREA NITROGEN 27 MG/DL (7-18); CALCIUM LEVEL 8.9 MG/DL (8.8-10.2); CARBON DIOXIDE LEVEL 30 MEQ/L (21-32); CHLORIDE LEVEL 103 MEQ/L (98-107); CHOLESTEROL LEVEL 140 MG/DL (<200); CREATININE FOR GFR 1.62 MG/DL (0.70-1.30); FREE T4 1.18 NG/DL (0.76-1.46); GLOMERULAR FILTRATION RATE 43.9 (>35); GLUCOSE, FASTING 87 MG/DL (70-100); HDL CHOLESTEROL 50 MG/DL (>40); LDL CHOLESTEROL 66.6 MG/DL (<100); NON-HDL-C 90 MG/DL; POTASSIUM SERUM 4.3 MEQ/L (3.5-5.1); SODIUM LEVEL 140 MEQ/L (136-145); TOTAL PROTEIN 6.8 GM/DL (6.4-8.2); TRIGLYCERIDES LEVEL 117 MG/DL (<150)
[2017-09-08 11:47] LABS: TOTAL 25(OH) VITAMIN D 50.7 NG/ML (30.0-100.0)
[2017-09-08 12:33] LABS: MAU/CREAT RATIO 57.5 MCG/MG (0.0-30.0)
== END ==
LOC: M LABDRAW1 10:19
DX: E11.9 Type 2 diabetes mellitus without complications (principal); I11.9 Hypertensive heart disease without heart failure; E78.2 Mixed hyperlipidemia; E55.9 Vitamin D deficiency, unspecified; E03.9 Hypothyroidism, unspecified; I50.42 Chronic combined systolic (congestive) and diastolic (congestive) heart failure
CPT/HCPCS: 83735

== ENCOUNTER → 2017-12-03 | Outpatient (REF) | payer OTHER ==
[2017-12-03 12:30] LABS: ALBUMIN 3.4 GM/DL (3.2-5.2); ANION GAP 8 MEQ/L (8-16); BLOOD UREA NITROGEN 24 MG/DL (7-18); CALCIUM LEVEL 8.7 MG/DL (8.8-10.2); CARBON DIOXIDE LEVEL 29 MEQ/L (21-32); CHLORIDE LEVEL 104 MEQ/L (98-107); CREATININE FOR GFR 1.56 MG/DL (0.70-1.30); GLOMERULAR FILTRATION RATE 45.8 (>35); GLUCOSE, FASTING 131 MG/DL (70-100); MAGNESIUM LEVEL 2.2 MG/DL (1.8-2.4); PHOSPHORUS LEVEL 3.6 MG/DL (2.5-4.9); POTASSIUM SERUM 4.6 MEQ/L (3.5-5.1); SODIUM LEVEL 141 MEQ/L (136-145)
== END ==
LOC: M LAB REF 11:46
DX: I50.42 Chronic combined systolic (congestive) and diastolic (congestive) heart failure (principal)
CPT/HCPCS: 83735

== ENCOUNTER → 2018-03-22 | Outpatient (REF) | payer OTHER ==
[2018-03-22 12:20] LABS: TOTAL 25(OH) VITAMIN D 46.3 NG/ML (30.0-100.0)
[2018-03-22 12:24] LABS: ALBUMIN 3.5 GM/DL (3.2-5.2); ALBUMIN/GLOBULIN RATIO 1.09 (1.00-1.93); ALKALINE PHOSPHATASE 53 U/L (45-117); ALT/SGPT 40 U/L (12-78); ANION GAP 8 MEQ/L (8-16); AST/SGOT 25 U/L (7-37); BILIRUBIN,TOTAL 1.6 MG/DL (0.2-1.0); BLOOD UREA NITROGEN 27 MG/DL (7-18); CALCIUM LEVEL 8.6 MG/DL (8.8-10.2); CARBON DIOXIDE LEVEL 30 MEQ/L (21-32); CHLORIDE LEVEL 101 MEQ/L (98-107); CHOLESTEROL LEVEL 166 MG/DL (<200); CHOLESTEROL RISK RATIO 3.132 (<5); CREATININE FOR GFR 1.73 MG/DL (0.70-1.30); FREE T4 1.21 NG/DL (0.76-1.46); GLOMERULAR FILTRATION RATE 40.7 (>35); GLUCOSE, FASTING 129 MG/DL (70-100); HDL CHOLESTEROL 53 MG/DL (>40); NON-HDL-C 113 MG/DL; POTASSIUM SERUM 4.5 MEQ/L (3.5-5.1); SODIUM LEVEL 139 MEQ/L (136-145); TOTAL PROTEIN 6.7 GM/DL (6.4-8.2)
[2018-03-22 12:31] LABS: ESTIMATED AVERAGE GLUCOSE 143 MG/DL (60-110); HEMOGLOBIN A1c 6.6 %
[2018-03-22 12:51] LABS: LDL CHOLESTEROL 80 MG/DL (<100); TRIGLYCERIDES LEVEL 163 MG/DL (<150)
== END ==
LOC: M LABDRAW1 10:43
DX: E78.2 Mixed hyperlipidemia (principal); E11.9 Type 2 diabetes mellitus without complications; E55.9 Vitamin D deficiency, unspecified; E03.9 Hypothyroidism, unspecified; I50.42 Chronic combined systolic (congestive) and diastolic (congestive) heart failure; I47.2 Ventricular tachycardia; I42.0 Dilated cardiomyopathy; I11.9 Hypertensive heart disease without heart failure; Z79.899 Other long term (current) drug therapy
CPT/HCPCS: 83735

== ENCOUNTER → 2018-03-22 | Outpatient (REF) | payer OTHER ==
[2018-03-22 12:03] LABS: BASO # 0.1 10^3/uL (0.0-0.2); BASO % 1.1 % (0.0-1.0); EOS # 0.5 10^3/uL (0.0-0.50); EOS % 7.1 % (0.0-3.0); HEMATOCRIT 54.1 % (42.0-52.0); HEMOGLOBIN 17.2 g/dl (13.5-17.5); IMMATURE GRANULOCYTE % 0.6 % (0-3.0); LYMPH # 1.3 10^3/uL (1.5-4.5); LYMPH % 19.6 % (24.0-44.0); MEAN CORPUSCULAR HEMOGLOBIN 29.5 pg (27.0-33.0); MEAN CORPUSCULAR HGB CONC 31.8 g/dl (32.0-36.5); MEAN CORPUSCULAR VOLUME 92.6 fl (80.0-96.0); MONO # 0.8 10^3/uL (0.0-0.8); MONO % 12.1 % (0.0-5.0); NEUTROPHILS # 3.8 10^3/uL (1.8-7.7); NEUTROPHILS % 59.5 % (36.0-66.0); PLATELET COUNT, AUTOMATED 212 10^3/uL (150-450); RED BLOOD COUNT 5.84 10^6/uL (4.30-6.10); RED CELL DISTRIBUTION WIDTH 14.5 % (11.5-14.5); WHITE BLOOD COUNT 6.4 10^3/uL (4.0-10.0)
[2018-03-22 12:14] LABS: ALBUMIN 3.5 GM/DL (3.2-5.2); ALBUMIN/GLOBULIN RATIO 1.06 (1.00-1.93); ALKALINE PHOSPHATASE 52 U/L (45-117); ALT/SGPT 40 U/L (12-78); ANION GAP 7 MEQ/L (8-16); AST/SGOT 21 U/L (7-37); BILIRUBIN,TOTAL 1.6 MG/DL (0.2-1.0); BLOOD UREA NITROGEN 28 MG/DL (7-18); CALCIUM LEVEL 9.3 MG/DL (8.8-10.2); CARBON DIOXIDE LEVEL 31 MEQ/L (21-32); CHLORIDE LEVEL 101 MEQ/L (98-107); CREATININE FOR GFR 1.71 MG/DL (0.70-1.30); GLOMERULAR FILTRATION RATE 41.2 (>35); GLUCOSE, FASTING 129 MG/DL (70-100); MAGNESIUM LEVEL 2.3 MG/DL (1.8-2.4); POTASSIUM SERUM 4.7 MEQ/L (3.5-5.1); SODIUM LEVEL 139 MEQ/L (136-145); TOTAL PROTEIN 6.8 GM/DL (6.4-8.2)
== END ==
LOC: M LABDRAW1 10:33
DX: I50.42 Chronic combined systolic (congestive) and diastolic (congestive) heart failure (principal); I42.0 Dilated cardiomyopathy; I47.2 Ventricular tachycardia

== ENCOUNTER 2018-04-16 13:46 | Emergency (ER) | payer OTHER ==
[2018-04-16] MEDS: ADACEL/BOOSTRIX VACCINE (DIPHTH/PERTUSS/ACELL/TETANUS)0.5ML SYR (90715) IM (15:11)
== END 2018-04-16 15:26 | disposition home or self-care (01) ==
LOC: M ED 13:46
DX: S01.01XA Laceration without foreign body of scalp, initial encounter (principal); W22.8XXA Striking against or struck by other objects, initial encounter; Y92.099 Unspecified place in other non-institutional residence as the place of occurrence of the external cause; Y93.01 Activity, walking, marching and hiking; Y99.9 Unspecified external cause status; E11.9 Type 2 diabetes mellitus without complications; Z95.0 Presence of cardiac pacemaker; Z95.810 Presence of automatic (implantable) cardiac defibrillator; Z95.3 Presence of xenogenic heart valve; Z79.82 Long term (current) use of aspirin; Z79.84 Long term (current) use of oral hypoglycemic drugs; Z79.899 Other long term (current) drug therapy; Z88.1 Allergy status to other antibiotic agents
CPT/HCPCS: 90715

== ENCOUNTER → 2018-07-23 | Outpatient (REF) | payer OTHER ==
[~2018-07-23] MED LIST changes: +BASA100I SQ; +DRIS50003 PO; +FLOM0.4C39 PO; -FLOM5CAP PO; +SPIR-10 PO; -SPIR25TA2 PO; +SYNT125T PO
[2018-07-23 12:45] LABS: CALCIUM LEVEL 9.1 MG/DL (8.8-10.2); CREATININE FOR GFR 1.71 MG/DL (0.70-1.30); GLOMERULAR FILTRATION RATE 41.1 (>35); MAGNESIUM LEVEL 2.2 MG/DL (1.8-2.4); POTASSIUM SERUM 4.1 MEQ/L (3.5-5.1)
== END ==
LOC: M LABDRAW1 09:19
PROVIDERS: ATTEND Physician Assistant
DX: I42.0 Dilated cardiomyopathy (principal)

== ENCOUNTER → 2018-10-21 | Outpatient (REF) | payer OTHER ==
[~2018-10-21] MED LIST changes: -/TAMS4CA OR; +FLOM0.4C39 OR; -MAGN1TAB25 PO; +MAGN1TAB26 PO
[2018-10-21 12:28] LABS: ALBUMIN 3.6 GM/DL (3.2-5.2); BILIRUBIN,TOTAL 1.3 MG/DL (0.2-1.0); CALCIUM LEVEL 8.9 MG/DL (8.8-10.2); CHOLESTEROL RISK RATIO 3.129 (<5); CREATININE FOR GFR 1.5 MG/DL (0.70-1.30); FREE T4 0.97 NG/DL (0.76-1.46); GLOMERULAR FILTRATION RATE 47.8 (>35); POTASSIUM SERUM 4.4 MEQ/L (3.5-5.1); THYROID STIMULATING HORMONE 8.17 uIU/ML (0.358-3.740); TOTAL PROTEIN 6.7 GM/DL (6.4-8.2)
[2018-10-21 15:18] LABS: HEMOGLOBIN A1c 7.7 %
== END ==
LOC: M LABDRAW1 11:37
PROVIDERS: ATTEND Physician Assistant
DX: E11.69 Type 2 diabetes mellitus with other specified complication (principal); E03.9 Hypothyroidism, unspecified

== ENCOUNTER → 2018-10-26 | Outpatient (REF) | payer OTHER ==
[2018-10-26 13:13] LABS: ALBUMIN 3.3 GM/DL (3.2-5.2); BILIRUBIN,TOTAL 1.4 MG/DL (0.2-1.0); CALCIUM LEVEL 8.9 MG/DL (8.8-10.2); CREATININE FOR GFR 1.6 MG/DL (0.70-1.30); GLOMERULAR FILTRATION RATE 44.4 (>35); MAGNESIUM LEVEL 2.2 MG/DL (1.8-2.4); POTASSIUM SERUM 4.1 MEQ/L (3.5-5.1); TOTAL PROTEIN 6.9 GM/DL (6.4-8.2)
== END ==
LOC: M LABDRAW1 12:07
PROVIDERS: ATTEND Physician Assistant
DX: I50.42 Chronic combined systolic (congestive) and diastolic (congestive) heart failure (principal); I47.2 Ventricular tachycardia

== ENCOUNTER → 2019-01-28 | Outpatient (REF) | payer OTHER ==
[2019-01-28 16:22] LABS: CALCIUM LEVEL 8.9 MG/DL (8.8-10.2); CREATININE FOR GFR 1.53 MG/DL (0.70-1.30); GLOMERULAR FILTRATION RATE 46.7 (>35); MAGNESIUM LEVEL 2.3 MG/DL (1.8-2.4); POTASSIUM SERUM 4.5 MEQ/L (3.5-5.1)
== END ==
LOC: M LABDRAW1 11:01
PROVIDERS: ATTEND Physician Assistant
DX: I50.42 Chronic combined systolic (congestive) and diastolic (congestive) heart failure (principal); I42.0 Dilated cardiomyopathy; I47.2 Ventricular tachycardia

== ENCOUNTER → 2019-04-08 | Outpatient (REF) | payer MEDICARE ==
[~2019-04-08] MED LIST changes: -GLIM4TAB PO; +GLIM4TAB3 PO
[2019-04-08 15:53] LABS: ALBUMIN 3.5 GM/DL (3.2-5.2); CALCIUM LEVEL 8.8 MG/DL (8.8-10.2); CREATININE FOR GFR 1.46 MG/DL (0.70-1.30); GLOMERULAR FILTRATION RATE 49.3 (>35); MAGNESIUM LEVEL 2.2 MG/DL (1.8-2.4); POTASSIUM SERUM 4.3 MEQ/L (3.5-5.1); TOTAL PROTEIN 6.6 GM/DL (6.4-8.2)
== END ==
LOC: M LABDRAW1 15:03
PROVIDERS: ATTEND Physician Assistant
DX: I47.2 Ventricular tachycardia (principal); I50.42 Chronic combined systolic (congestive) and diastolic (congestive) heart failure

== ENCOUNTER → 2019-08-09 | Outpatient (CLI) | payer MEDICARE ==
[~2019-08-09] MED LIST changes: -FLUO20CA19 PO; +FLUO20CA22 PO; -GLIM4TAB3 PO; +GLIM4TAB5 PO; -SIMV40TA2 PO; +SIMV40TA20 PO
[2019-08-09 19:54] LABS: ALBUMIN 3.5 GM/DL (3.2-5.2); BILIRUBIN,TOTAL 1.4 MG/DL (0.2-1.0); CREATININE FOR GFR 1.67 MG/DL (0.70-1.30); GLOMERULAR FILTRATION RATE 42.1 (>35); POTASSIUM SERUM 4.5 MEQ/L (3.5-5.1); TOTAL PROTEIN 6.8 GM/DL (6.4-8.2)
== END ==
LOC: M WUC 17:27
PROVIDERS: ATTEND Physician Assistant
DX: R10.11 Right upper quadrant pain (principal)

== ENCOUNTER 2019-08-18 12:05 | Inpatient (IN) | payer MEDICARE ==
[~2019-08-18] VITALS: Ht 175.3 cm; Wt 133.2 kg
[~2019-08-18 12:05] MED LIST changes: +BASA100I SC; -BASA100I SQ
[2019-08-18] MEDS ORDERED: INDA125TA PO (12:21)
[2019-08-18] MEDS ORDERED: TRUL10IN SC (12:21)
[2019-08-18] MEDS ORDERED: ENTR1TAB PO (12:21)
[2019-08-18 13:20] LABS: VENOUS BASE EXCESS 1.7 (-2.0-2.0); VENOUS HCO3 28.3 MEQ/L (23.0-27.0); VENOUS O2 SATURATION 76.1 % (60.0-80.0); VENOUS PARTIAL PRESSURE CO2 50.7 mmHg (38.0-50.0); VENOUS PARTIAL PRESSURE O2 41.2 mmHg (30.0-50.0); VENOUS PH 7.364 UNITS (7.330-7.430); VENOUS STANDARD HCO3 25.3 MEQ/L; VENOUS TOTAL CO2 29.8 MEQ/L (24.0-28.0)
[2019-08-18 13:26] LABS: BASO # 0.1 10^3/uL (0.0-0.2); EOS # 0.4 10^3/uL (0.0-0.5); EOS % 6.2 % (0.0-3.0); HEMATOCRIT 53.7 % (42.0-52.0); LYMPH # 0.9 10^3/uL (1.5-5.0); LYMPH % 13.7 % (24.0-44.0); MEAN CORPUSCULAR HEMOGLOBIN 29.2 pg (27.0-33.0); MEAN CORPUSCULAR HGB CONC 31.7 g/dl (32.0-36.5); MEAN CORPUSCULAR VOLUME 92.1 fl (80.0-96.0); MONO # 0.6 10^3/uL (0.0-0.8); MONO % 9.4 % (0.0-5.0); NEUTROPHILS # 4.3 10^3/uL (1.5-8.5); NEUTROPHILS % 69.1 % (36.0-66.0); PLATELET COUNT, AUTOMATED 225 10^3/uL (150-450); RED BLOOD COUNT 5.83 10^6/uL (4.30-6.10); WHITE BLOOD COUNT 6.3 10^3/uL (4.0-10.0)
[2019-08-18 13:34] LABS: INR 1.08; PROTHROMBIN TIME 13.7 SECONDS (11.8-14.0)
--- NOTE | 2019-08-18 13:39 | REP ---
PORTABLE CHEST: AP portable view of the chest is performed and compared to prior study of 07/19/2009. There is no acute infiltrate or pulmonary edema. There is cardiomegaly again noted. There is calcification and tortuosity of the thoracic aorta. Mediastinal silhouette is unchanged. Left pacemaker is again noted. IMPRESSION: Cardiomegaly without evidence of acute infiltrate or pulmonary edema. Electronically Signed by Jona Flores MD 08/18/2019 08:14 P
[2019-08-18 14:11] LABS: ALBUMIN 3.3 GM/DL (3.2-5.2); BILIRUBIN,DIRECT 0.3 MG/DL (0.0-0.2); BILIRUBIN,TOTAL 1.3 MG/DL (0.2-1.0); CALCIUM LEVEL 8.7 MG/DL (8.8-10.2); CK-MB VALUE MASS 2.5 NG/ML (<3.6); CREATININE FOR GFR 1.79 MG/DL (0.70-1.30); GLOMERULAR FILTRATION RATE 38.9 (>35); MB/CK RELATIVE INDEX 1.28 (< OR =4); POTASSIUM SERUM 4.4 MEQ/L (3.5-5.1); THYROID STIMULATING HORMONE 7.7 uIU/ML (0.358-3.740); THYROXINE (T4) 9.4 UG/DL (4.5-12.0); TOTAL PROTEIN 6.6 GM/DL (6.4-8.2); TROPONIN I 0.02 NG/ML (< 0.10)
[2019-08-18] MEDS ORDERED: FUROSEMIDE 40 MG/4 ML VIAL (J1940) IV ONE (15:15)
[2019-08-18] MEDS ORDERED: ATOR40TA75 PO (15:51)
[2019-08-18] MEDS ORDERED: VITA50005 PO (15:51)
[2019-08-18] MEDS ORDERED: DIGO0.123 PO (15:51)
[2019-08-18] MEDS ORDERED: ALEV220T22 PO (15:51)
[2019-08-18] MEDS ORDERED: LEVO112T25 PO (15:51)
[2019-08-18] MEDS ORDERED: GABA-843 PO ×2 (15:51)
[2019-08-18] MEDS ORDERED: FARX1TAB3 PO (15:51)
[2019-08-18] MEDS ORDERED: ACETAMINOPHEN TAB 650MG DOSE (2X325MG) PO PRN (16:00)
[2019-08-18] MEDS ORDERED: MOM 30ML SUSPENSION UDC PO PRN (16:00)
[2019-08-18] MEDS ORDERED: MAALOX 30 ML SUSP *UDC PO PRN (16:00)
[2019-08-18] MEDS ORDERED: GLUCAGON FOR INJ 1 MG VIAL (J1610) SC PRN (16:15)
[2019-08-18] MEDS ORDERED: DEXTROSE 50% 50 ML SYRINGE IV PRN (16:15)
[2019-08-18] MEDS ORDERED: GLUCOSE 4 GM CHEW TABLET PO PRN (16:15)
--- NOTE | 2019-08-18 16:23 | HPEPDOC ---
General Date of Admission 08/18/19 Date of Service: Aug 18, 2019 Chief Complaint The patient is a 84-year-old male admitted with a reason for visit of Medical Complaint. Source: Patient Exam Limitations: No limitations Timing/Duration: Other (few months) Severity: Moderate Associated Symptoms: Other (weight gain, shortness of breath when moving around and at bedtime when while lying down) History of Present Illness This is a 84 years old, obese, white male with past medical history of hypertension, diabetes mellitus, dyslipidemia, atrial fibrillation on no anticoagulation, congestive heart failure, which is systolic in nature with EF of 20% status post ICD, CAD, hypothyroidism, BPH, CK D1 sent to ER with chief complaints of weight gains of 30 pounds since last few months to 6 months. Also complaining of increasing shortness of breath on ambulation and while lying down. Denies any chest pain, nausea, vomiting, abdominal pain, etc. Home Medications Scheduled Amiodarone HCl (Amiodarone HCl) 200 Mg Tab, 200 MG PO DAILY, (Reported) Aspirin (Aspir 81) 81 Mg Tab, 81 MG PO QPM, (Reported) Atorvastatin Calcium (Atorvastatin Calcium) 40 Mg Tablet, 40 MG PO DAILY, (Reported) Carvedilol (Carvedilol) 6.25 Mg Tab, 6.25 MG PO BID, (Reported) Dapagliflozin Propanediol (Farxiga) 10 Mg Tablet, 10 MG PO DAILY, (Reported) Digoxin (Digoxin) 125 Mcg Tablet, 125 MCG PO DAILY, (Reported) Dulaglutide (Trulicity) 0.75 Mg/0.5 Ml Pen.injctr, 0.75 MG SC QWEEK, (Reported) SUNDAYS Ergocalciferol (Vitamin D2) (Vitamin D2) 50,000 Units Cap, 50,000 UNITS PO QWEEK, (Reported) SUNDAYS Fluoxetine Hcl (Fluoxetine HCl) 20 Mg Cap, 20 MG PO DAILY, (Reported) Gabapentin (Gabapentin) 300 Mg Capsule, 300 MG PO QHS, (Reported) Glimepiride (Glimepiride) 4 Mg Tab, 8 MG PO DAILY, (Reported) Indapamide (Indapamide) 1.25 Mg Tablet, 1.25 MG PO DAILY, (Reported) Insulin Glargine,Hum.rec.anlog (Basaglar Kwikpen U-100) 100 Unit/Ml Inj, 60 UNITS SC DAILY, (Reported) Levothyroxine Sodium (Levoxyl) 112 Mcg Tablet, 112 MCG PO DAILY, (Reported) Lisinopril (Lisinopril) 5 Mg Tab, 5 MG PO DAILY, (Reported) Magnesium Oxide (Magnesium Oxide) 400 Mg Tab, 800 MG PO BID, (Reported) Sacubitril/Valsartan (Entresto 24 mg-26 mg Tablet) 1 Each Tablet, 1 TAB PO BID, (Reported) Sitagliptin Phosphate (Januvia) 100 Mg Tab, 100 MG PO DAILY, (Reported) Tamsulosin HCl (Flomax) 0.4 Mg Cap, 0.4 MG PO BID, (Reported) INCREASED TO BID ABOUT ONE WEEK AGO Scheduled PRN Gabapentin (Gabapentin) 300 Mg Capsule, 300 MG PO BID PRN for PAIN, (Reported) Naproxen Sodium (Aleve) 220 Mg Tablet, 220 MG PO BID PRN for PAIN, (Reported) Allergies Coded Allergies: azithromycin (Verified Allergy, Intermediate, RASH, 08/18/19) Past Medical History Medical History Hypertension, diabetes mellitus, dyslipidemia, atrial fibrillation, systolic congestive heart failure, reduced EF, status post ICD, CAD, hypothyroidism, BPH and C KD Surgical History ICD placement in 2011, internal sphincterectomy, and rectal fistula repair Family History Significant Family History: No pertinent family hx Social History * Smoker: Denies Alcohol: Denies Drugs: denies A-FIB/CHADSVASC A-FIB History Current/History of A-Fib/PAF?: No Review of Systems Constitutional: Denies: Chills, Fever, Malaise, Night Sweats, Weakness, Fatigue, Weight Loss, Lethargy, Other Eyes: Denies: Pain, Vision change, Conjunctivae inflammation, Eyelid i nflammation, Redness, Other ENT: Denies: Head Aches, Ear Pain, Dysphagia, Sinus Congestion, Post Nasal Drip, Sore Throat, Epistaxis, Other Symptoms Pulmonary: Reports: Dyspnea Cardiovascular: Reports: Orthopnea, Paroxysmal Noc. Dyspnea Gastrointestinal: Denies: Nausea, Vomiting, Abdominal Pain, Diarrhea, Consti pation, Melena, Hematochezia, Other Symptoms Genitourinary: Denies: Dysuria, Frequency, Incontinence, Hematuria, Retention, Other Symptoms Hematologic: Denies: Bruising, Bleeding Excessively, Petecchia, Purpura, Enlarged Lymph Nodes, Other Hematologic Endocrine: Denies: Polydipsia, Polyphagia, Polyuria, Heat Intolerance, Cold Intolerance, Other Endocrine Sx Musculoskeletal: Denies: Neck Pain, Back Pain, Shoulder Pain, Arm Pain, Hand Pain, Leg Pain, Foot Pain, Joint Pain, Muscle Pain, Spasms, Other Symptoms Neurological: Denies: Weakness, Numbness, Incoordination, Change in speech, Co nfusion, Seizures, Other Symptoms Psych: Denies: Mood Normal, Anxiety, Depression, Memory Issues, Thoughts of Self Harm, Anger, Thoughts of Harming Other, Other Psych Physical Examination General Exam: Positive: Alert, Cooperative Eye Exam: Positive: PERRLA, Conjunctiva & lids normal ENT Exam: Positive: Atraumatic, Mucous membr. moist/pink Neck Exam: Positive: Supple Chest Exam: Positive: Other (. Decreased breath sounds bilaterally but no rales audible) Heart Exam: Positive: Rate Normal, Normal S1 Telemetry: Positive: Other Telemetry: (pacemaker rhythm) Abdomen Exam: Positive: Normal bowel sounds, Soft, Tenderness Extremity Exam: Positive: Edema (. No edema) Skin Exam: Positive: Nl turgor and temperature Neuro Exam: Positive: Normal Gait, Cranial Nerves 3-12 NL Psych Exam: Positive: Mood NL, Oriented x 3 Vital Signs Vital Signs Date Time Temp Pulse Resp B/P (MAP) Pulse Ox O2 Delivery O2 Flow Rate FiO2 08/18/19 14:16 62 93 08/18/19 14:01 122/66 (84) 08/18/19 13:14 Room Air 08/18/19 12:05 96.1 22 Laboratory Data Labs 24H Laboratory Tests 2 08/18/19 13:07: Lactic Acid Level 2.5*H 08/18/19 13:08: Immature Granulocyte % (Auto) 0.6, Neutrophils (%) (Auto) 69.1H, Lymphocytes (%) (Auto) 13.7L, Monocytes (%) (Auto) 9.4H, Eosinophils (%) (Auto) 6.2H, Basophils (%) (Auto) 1.0, Neutrophils # (Auto) 4.3, Lymphocytes # (Auto) 0.9L, Monocytes # (Auto) 0.6, Eosinophils # (Auto) 0.4, Basophils # (Auto) 0.1, Nucleated Red Blood Cells % (auto) 0.0, Prothrombin Time 13.7, Prothromb Time International Ratio 1.08, Blood Gas Bicarbonate Standard 25.3, Venous Blood pH 7.364, Venous Blood Partial Pressure CO2 50.7H, Venous Blood Partial Pressure O2 41.2, Venous Blood Total Carbon Dioxide 29.8H, Venous Blood HCO3 28.3H, Venous Blood Oxygen Saturation 76.1, Venous Blood Base Excess 1.7, Anion Gap 7L, Glomerular Filtration Rate 38.9, Calcium Level 8.7L, Total Bilirubin 1.3H, Direct Bilirubin 0.3H, Aspartate Amino Transf (AST/SGOT) 24, Alanine Aminotransferase (ALT/SGPT) 28, Alkaline Phosphatase 114, Total Creatine Kinase 195, Creatine Kinase MB 2.5, Creatine Kinase MB Relative Index 1.28, Troponin I 0.02, WH-Gej-M-Type Natriuretic Peptide 1057H, Total Protein 6.6, Albumin 3.3, Albumin/Globulin Ratio 1.00, Thyroid Stimulating Hormone (TSH) 7.700H, Thyroxine (T4) 9.4 CBC/BMP Laboratory Tests 08/18/19 13:08 Microbiology Microbiology 08/18/19 Blood Culture, Received Pending 08/18/19 Respiratory Virus Panel (PCR) ([facility]) - Final, Complete 08/18/19 Blood Culture, Received Pending Problems (1) Acute systolic (congestive) heart failure Status: Acute Problem Text: Admit patient to PCU with telemetry As per patient, he did gain weight, about 30 pounds in 3-6 months , But there are no overt signs of congestive heart failure such as peripheral edema or pulmonary edema on chest x-ray , But considering his EF of 10-20% with a history of chronic congestive heart failure and with symptoms of orthopnea and nocturnal dyspnea and dyspnea on minutes. Minimum exertion. We will treat him as acute exacerbation of systolic heart failure Patient received 1 dose of Lasix in ED and will be started on Lasix 40 mg IV every 12 hours Strict I and O's DC lisinopril as patient is already on entrsto Telemetry monitoring , Status post AICD/PPM placement Repeat echocardiogram DVT prophylaxis with heparin Diet is carbohydrate consistent diet Activity as tolerated (2) HTN (hypertension) Status: Chronic Problem Text: Continue home meds (3) CKD (chronic kidney disease) Status: Chronic Problem Text: Patient's BUN is 20, creatinine 1.79 Monitor renal functions (4) Morbid obesity with BMI of 40.0-44.9, adult Status: Chronic Problem Text: History of morbid obesity with recent weight gain Weight loss counseling was done and he understands very well (5) Diabetes mellitus Status: Chronic Problem Text: Fingerstick blood sugar every before meals and at bedtime with coverage Continue all home meds including basal insulin Plan / VTE VTE Prophylaxis Ordered?: Yes ROULA SANTOS MD Aug 18, 2019 16:23
--- NOTE | 2019-08-18 17:33 | ECGEPIP ---
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
[2019-08-18] MEDS: HumaLOG INSULIN (NovoLOG) PER UNIT SC SCH ×2 (19:48→21:00)
[2019-08-18 22:00] VITALS: BP 134/61
[2019-08-18] MEDS: ENTRESTO 24-26MG TABLET (SACUBITRIL/VALSARTAN) PO SCH (22:51)
[2019-08-18] MEDS: GABAPENTIN 300 MG CAP PO SCH (22:51)
[2019-08-18] MEDS: ASPIRIN 81 MG ENTERIC TAB PO SCH (22:52)
[2019-08-18] MEDS: MAGNESIUM OXIDE 400 MG TAB (MAG-OX) PO SCH (22:52)
[2019-08-18] MEDS: CARVedilol 6.25 MG TAB PO SCH (22:52)
[2019-08-18] MEDS: TAMSULOSIN 0.4 MG CAP PO SCH (22:52)
[2019-08-18] MEDS: DOCUSATE SODIUM 100 MG CAP PO SCH (22:52)
[2019-08-18] MEDS: HEPARIN SOD (PORCINE) 5000 UNITS/ML VIAL (J1644 PER 1000UNITS) SC SCH (22:53)
[2019-08-19 04:00] VITALS: BP 115/63
[2019-08-19] MEDS ORDERED: FUROSEMIDE 40 MG/4 ML VIAL (J1940) IV SCH (04:00)
[2019-08-19] MEDS: LEVOTHYROXINE 112MCG TABLET (0.112MG) PO SCH (05:43)
[2019-08-19 05:57] LABS: HEMOGLOBIN 17.2 g/dl (13.5-17.5); MEAN CORPUSCULAR HEMOGLOBIN 29.3 pg (27.0-33.0); MEAN CORPUSCULAR HGB CONC 32.5 g/dl (32.0-36.5); MEAN CORPUSCULAR VOLUME 90.1 fl (80.0-96.0); PLATELET COUNT, AUTOMATED 205 10^3/uL (150-450); RED BLOOD COUNT 5.88 10^6/uL (4.30-6.10); WHITE BLOOD COUNT 6.6 10^3/uL (4.0-10.0)
[2019-08-19 06:15] LABS: ALBUMIN 3.2 GM/DL (3.2-5.2); BILIRUBIN,TOTAL 1.4 MG/DL (0.2-1.0); CALCIUM LEVEL 8.5 MG/DL (8.8-10.2); CREATININE FOR GFR 1.69 MG/DL (0.70-1.30); GLOMERULAR FILTRATION RATE 41.6 (>35); MAGNESIUM LEVEL 2.3 MG/DL (1.8-2.4); POTASSIUM SERUM 3.8 MEQ/L (3.5-5.1); TOTAL PROTEIN 6.4 GM/DL (6.4-8.2)
[2019-08-19 07:31] VITALS: BP 120/56
[2019-08-19] MEDS: DIGOXIN 0.125 MG TAB PO SCH (09:00)
[2019-08-19] MEDS: CARVedilol 6.25 MG TAB PO SCH ×2 (09:00→20:29)
[2019-08-19] MEDS: LEVEMIR (INSULIN DETEMIR) 1 UNITS/0.01ML SC SCH (09:32)
[2019-08-19] MEDS: HumaLOG INSULIN (NovoLOG) PER UNIT SC SCH ×4 (09:33→20:30)
[2019-08-19] MEDS: GLIMEPIRIDE 2 MG TAB PO SCH (09:34)
[2019-08-19] MEDS: AMIODARONE 200 MG TAB (PACERONE) PO SCH (09:35)
[2019-08-19] MEDS: INDAPAMIDE 1.25MG TABLET PO SCH (09:35)
[2019-08-19] MEDS: HEPARIN SOD (PORCINE) 5000 UNITS/ML VIAL (J1644 PER 1000UNITS) SC SCH ×2 (09:35→20:31)
[2019-08-19] MEDS: ENTRESTO 24-26MG TABLET (SACUBITRIL/VALSARTAN) PO SCH ×2 (09:35→20:29)
[2019-08-19] MEDS: SITagliptin 50 MG TAB (JANUVIA) PO SCH (09:36)
[2019-08-19] MEDS: FLUoxetine 20 MG CAP PO SCH (09:36)
[2019-08-19] MEDS: ATORVASTATIN 20 MG TAB PO SCH (09:37)
[2019-08-19] MEDS: TAMSULOSIN 0.4 MG CAP PO SCH ×2 (09:37→20:29)
[2019-08-19] MEDS: DOCUSATE SODIUM 100 MG CAP PO SCH ×2 (09:38→20:29)
--- NOTE | 2019-08-19 09:49 | IPNPDOC ---
Subjective Date Seen The patient was seen on 08/19/19. Subjective Chief Complaint/HPI Patient sitting up eating his breakfast offers no new complaints and no shortness of breath, at bedside General: Denies: ROS Unobtainable, Chills, Night Sweats, Fatigue, Malaise, Normal Appetite, Other Symptoms Constitutional: Denies: Chills, Fever, Malaise, Night Sweats, Weakness, Fatigue, Weight Loss, Lethargy, Other Eyes: Denies: Pain, Vision change, Conjunctivae inflammation, Eyelid inflammation, Redness, Other Pulmonary: Denies: Dyspnea, Cough, Pleuritic Chest Pain, Other Symptoms Cardiovascular: Denies: Chest Pain, Palpitations, Orthopnea, Paroxysmal Noc. Dyspnea, Edema, Lt Headedness, Other Symptoms Gastrointestinal: Denies: Nausea, Vomiting, Abdominal Pain, Diarrhea, Constipation, Melena, Hematochezia, Other Symptoms Genitourinary: Denies: Dysuria, Frequency, Incontinence, Hematuria, Retention, Other Symptoms Hematologic: Denies: Bruising, Bleeding Excessively, Petecchia, Purpura, Enlarged Lymph Nodes, Other Hematologic Endocrine: Denies: Polydipsia, Polyphagia, Polyuria, Heat Intolerance, Cold Intolerance, Other Endocrine Sx Musculoskeletal: Denies: Neck Pain, Back Pain, Shoulder Pain, Arm Pain, Hand Pain, Leg Pain, Foot Pain, Joint Pain, Muscle Pain, Spasms, Other Symptoms Neurological: Denies: Weakness, Numbness, Incoordination, Change in speech, Confusion, Seizures, Other Symptoms Objective Physical Examination ENT Exam: Positive: Atraumatic, Mucous membr. moist/pink Neck Exam: Positive: Supple Chest Exam: Positive: Clear to auscultation, Normal air movement Heart Exam: Positive: Rate Normal, Normal S1 Telemetry: Positive: Other Telemetry: (pacemaker rhythm) Abdomen Exam: Positive: Normal bowel sounds, Soft, Tenderness Extremity Exam: Positive: Edema (. No edema) Skin Exam: Positive: Nl turgor and temperature Neuro Exam: Positive: Normal Gait, Cranial Nerves 3-12 NL Psych Exam: Positive: Mood NL, Oriented x 3 Assessment /Plan Problems (1) Acute systolic (congestive) heart failure Status: Acute Problem Text: Patient has a history of weight gain 30 pounds in last few months, but clinically there is no evidence of bipedal edema, rales or crackles in lungs are engorged JVD, and patient also did not respond to Lasix 40 mg IV every 12 hours. Doubt this man gain is from a fluid retention, but he does have a significant history of cardiac disease with EF of 20%. Will increase Lasix to 80 mg IV every 12 hours and monitor response Will also await echocardiogram report. Once available Continue all present meds including home meds Repeat chest x-ray in a.m. Repeat BNP, CBC, CMP in a.m. At the level work is normal, and patient continues to be asymptomatic and will possibly discharge home in a.m. (2) CKD (chronic kidney disease) Status: Chronic Problem Text: Patient's BUN is 25, creatinine 1.69, which seems to be his baseline renal function Continue monitoring renal functions (3) HTN (hypertension) Status: Chronic Problem Text: Continue home meds (4) Diabetes mellitus Status: Chronic Problem Text: Fingerstick blood sugar every before meals and at bedtime Continue all home meds (5) Morbid obesity with BMI of 40.0-44.9, adult Status: Chronic Plan/VTE VTE Prophylaxis Ordered?: Yes VS, I&O, 24H, Fishbone Vital Signs/I&O Vital Signs Date Time Temp Pulse Resp B/P (MAP) Pulse Ox O2 Delivery O2 Flow Rate FiO2 08/19/19 07:31 97.3 55 20 120/56 (77) 91 Room Air I&O- Last 24 Hours up to 6 AM 08/19/19 06:00 Intake Total 720 ml Output Total 625 ml Balance 95 ml Laboratory Data 24H LABS Laboratory Tests 2 08/18/19 13:07: Lactic Acid Level 2.5*H 08/18/19 13:08: Immature Granulocyte % (Auto) 0.6, Neutrophils (%) (Auto) 69.1H, Lymphocytes (%) (Auto) 13.7L, Monocytes (%) (Auto) 9.4H, Eosinophils (%) (Auto) 6.2H, Basophils (%) (Auto) 1.0, Neutrophils # (Auto) 4.3, Lymphocytes # (Auto) 0.9L, Monocytes # (Auto) 0.6, Eosinophils # (Auto) 0.4, Basophils # (Auto) 0.1, Nucleated Red Blood Cells % (auto) 0.0, Prothrombin Time 13.7, Prothromb Time International R atio 1.08, Blood Gas Bicarbonate Standard 25.3, Venous Blood pH 7.364, Venous Blood Partial Pressure CO2 50.7H, Venous Blood Partial Pressure O2 41.2, Venous Blood Total Carbon Dioxide 29.8H, Venous Blood HCO3 28.3H, Venous Blood Oxygen Saturation 76.1, Venous Blood Base Excess 1.7, Anion Gap 7L, Glomerular Filtration Rate 38.9, Calcium Level 8.7L, Total Bilirubin 1.3H, Direct Bilirubin 0.3H, Aspartate Amino Transf (AST/SGOT) 24, Alanine Aminotransferase (ALT/SGPT) 28, Alkaline Phosphatase 114, Total Creatine Kinase 195, Creatine Kinase MB 2.5, Creatine Kinase MB Relative Index 1.28, Troponin I 0.02, OE-Wng-T-Type Natriuretic Peptide 1057H, Total Protein 6.6, Albumin 3.3, Albumin/Globulin Ra bryan 1.00, Thyroid Stimulating Hormone (TSH) 7.700H, Thyroxine (T4) 9.4 08/18/19 16:47: 08/18/19 18:26: Lactic Acid Followup at 4 Hours 2.2*H 08/18/19 19:39: Bedside Glucose (Misc Panel) 195H 08/18/19 22:10: Bedside Glucose (Misc Panel) 201H 08/19/19 05:34: Nucleated Red Blood Cells % (auto) 0.0, Anion Gap 6L, Glomerular Filtration Rate 41.6, Calcium Level 8.5L, Magnesium Level 2.3, Total Bilirubin 1.4H, Aspartate Amino Transf (AST/SGOT) 27, Alanine Aminotransferase (ALT/SGPT) 26, Alkaline Phosphatase 115, Total Protein 6.4, Albumin 3.2, Albumin/Globulin Ratio 1.00 CBC/BMP Laboratory Tests 08/18/19 13:08 08/19/19 05:34 Microbiology Microbiology 08/18/19 Blood Culture, Received Pending 08/18/19 Respiratory Virus Panel (PCR) ([facility]) - Final, Complete 08/18/19 Blood Culture, Received Pending ROULA SANTOS MD Aug 19, 2019 09:49
[2019-08-19] MEDS: MAGNESIUM OXIDE 400 MG TAB (MAG-OX) PO SCH ×2 (10:28→20:30)
[2019-08-19] MEDS ORDERED: SLF 3 ML SYR IV PRN (10:45)
[2019-08-19 11:24] VITALS: BP 104/59
[2019-08-19] MEDS: SLF 3 ML SYR IV SCH ×2 (13:01→20:30)
[2019-08-19 15:32] VITALS: BP 110/56
[2019-08-19] MEDS: FUROSEMIDE 100 MG/10 ML VIAL (J1940) IV SCH (16:00)
[2019-08-19 16:54] VITALS: BP 106/58
[2019-08-19 20:00] VITALS: BP 117/60
[2019-08-19] MEDS: ASPIRIN 81 MG ENTERIC TAB PO SCH (20:29)
[2019-08-19] MEDS: GABAPENTIN 300 MG CAP PO SCH (20:29)
[2019-08-20] VITALS: BP 107/62
[2019-08-20 04:00] VITALS: BP 121/57
[2019-08-20] MEDS: FUROSEMIDE 100 MG/10 ML VIAL (J1940) IV SCH (04:53)
[2019-08-20] MEDS: SLF 3 ML SYR IV SCH (05:46)
[2019-08-20] MEDS: LEVOTHYROXINE 112MCG TABLET (0.112MG) PO SCH (05:51)
[2019-08-20 06:15] LABS: BASO # 0.1 10^3/uL (0.0-0.2); EOS # 0.4 10^3/uL (0.0-0.5); EOS % 4.9 % (0.0-3.0); HEMATOCRIT 51.8 % (42.0-52.0); HEMOGLOBIN 16.7 g/dl (13.5-17.5); LYMPH % 13.7 % (24.0-44.0); MEAN CORPUSCULAR HGB CONC 32.2 g/dl (32.0-36.5); MEAN CORPUSCULAR VOLUME 89.9 fl (80.0-96.0); MONO # 0.7 10^3/uL (0.0-0.8); NEUTROPHILS # 5.1 10^3/uL (1.5-8.5); NEUTROPHILS % 69.7 % (36.0-66.0); PLATELET COUNT, AUTOMATED 212 10^3/uL (150-450); RED BLOOD COUNT 5.76 10^6/uL (4.30-6.10); WHITE BLOOD COUNT 7.3 10^3/uL (4.0-10.0)
[2019-08-20 06:35] LABS: ALBUMIN 3.2 GM/DL (3.2-5.2); BILIRUBIN,TOTAL 1.4 MG/DL (0.2-1.0); CALCIUM LEVEL 8.5 MG/DL (8.8-10.2); CREATININE FOR GFR 1.88 MG/DL (0.70-1.30); GLOMERULAR FILTRATION RATE 36.8 (>35); TOTAL PROTEIN 6.5 GM/DL (6.4-8.2)
--- NOTE | 2019-08-20 07:58 | REP ---
Portable chest x-ray: Single view. History: CHF. Comparison chest x-ray: August 18, 2019. Findings: A multi lead pacemaker is seen in the right heart via the left side as before. The patient is status post aortic valve replacement. Cardiomegaly is observed unchanged from the comparison study. Pulmonary vasculature is somewhat cephalized. There is no evidence of pleural effusion or pulmonary edema. No focal infiltrate. Electronically Signed by Loki Duran MD 08/20/2019 07:49 A
[2019-08-20 08:00] VITALS: BP 92/45
[2019-08-20] MEDS: MAGNESIUM OXIDE 400 MG TAB (MAG-OX) PO SCH (08:46)
[2019-08-20] MEDS: SITagliptin 50 MG TAB (JANUVIA) PO SCH (08:46)
[2019-08-20] MEDS: HEPARIN SOD (PORCINE) 5000 UNITS/ML VIAL (J1644 PER 1000UNITS) SC SCH (08:46)
[2019-08-20] MEDS: TAMSULOSIN 0.4 MG CAP PO SCH (08:46)
[2019-08-20] MEDS: LEVEMIR (INSULIN DETEMIR) 1 UNITS/0.01ML SC SCH (08:47)
[2019-08-20] MEDS: HumaLOG INSULIN (NovoLOG) PER UNIT SC SCH ×2 (08:47→12:00)
[2019-08-20] MEDS: ENTRESTO 24-26MG TABLET (SACUBITRIL/VALSARTAN) PO SCH (08:48)
[2019-08-20] MEDS: ATORVASTATIN 20 MG TAB PO SCH (08:48)
[2019-08-20] MEDS: GLIMEPIRIDE 2 MG TAB PO SCH (08:48)
[2019-08-20] MEDS: AMIODARONE 200 MG TAB (PACERONE) PO SCH (08:48)
[2019-08-20] MEDS: INDAPAMIDE 1.25MG TABLET PO SCH (08:48)
[2019-08-20] MEDS: FLUoxetine 20 MG CAP PO SCH (08:49)
[2019-08-20 09:00] VITALS: BP 92/45
[2019-08-20] MEDS: DOCUSATE SODIUM 100 MG CAP PO SCH (09:00)
[2019-08-20] MEDS: CARVedilol 6.25 MG TAB PO SCH (09:00)
[2019-08-20] MEDS: DIGOXIN 0.125 MG TAB PO SCH (09:00)
--- NOTE | 2019-08-20 09:49 | DS.PDOC ---
Discharge Summary General Date of Admission Aug 18, 2019 at 15:53 Date of Discharge 08/20/19 Discharge Summary PROCEDURES PERFORMED DURING STAY: None. ADMITTING DIAGNOSES: 1. Volume overload. DISCHARGE DIAGNOSES: 1. Volume overload. COMPLICATIONS/CHIEF COMPLAINT: Cardiac Volume Overload. HISTORY OF PRESENT ILLNESS: This is a 84 years old, obese, white male with past medical history of hypertension, diabetes mellitus, dyslipidemia, atrial fibrillation on no anticoagulation, congestive heart failure, which is systolic in nature with EF of 20% status post ICD, CAD, hypothyroidism, BPH, CK D1 sent to ER with chief complaints of weight gains of 30 pounds since last few months to 6 months. Also complaining of increasing shortness of breath on ambulation and while lying down. Denies any chest pain, nausea, vomiting, abdominal pain, etc.. HOSPITAL COURSE: [ (1) Acute systolic (congestive) heart failure Patient has a history of weight gain 30 pounds in last few months, but clinically there is no evidence of bipedal edema, rales or crackles in lungs are engorged JVD, and patient also did not respond to Lasix 40 mg IV every 12 hours. Doubt this man gain is from a fluid retention, but he does have a significant history of cardiac disease with EF of 20%. Increase Lasix to 80 mg IV every 12 hours with some response Echocardiogram report is still pending. We will probably discharge patient home on by mouth Lasix. If the echo does not show any worsening of structural or functional Repeat BNP is under within normal limits and repeat checks x-ray does not show any pulmonary edema Patient can follow with Dr. Boone on Thursday. Once he is discharged home (2) CKD (chronic kidney disease) Patient's BUN is 25, creatinine 1.69, which seems to be his baseline renal function Continue monitoring renal functions (3) HTN (hypertension) Continue home meds (4) Diabetes mellitus Continue home meds (5) Morbid obesity with BMI of 40.0-44.9, adult DISCHARGE MEDICATIONS: Please see below. ALLERGIES: Please see below. PHYSICAL EXAMINATION ON DISCHARGE: VITAL SIGNS: Please see below. GENERAL: Within normal limits HEENT: PERRLA. Eyes ocular muscles intact . Supple. Negative JVD, negative lymphadenopathy NECK: Supple. Negative JVD, negative lymphadenopathy CARDIOVASCULAR EXAMINATION: S1, S2, regular RESPIRATORY EXAMINATION: Clear to A&P ABDOMINAL EXAMINATION: , Soft, nontender, bowel sounds present. No organomegaly EXTREMITIES: No clubbing, cyanosis, edema SKIN: Normal NEUROLOGICAL EXAMINATION: . No focal motor sensory deficit PSYCHIATRIC EXAMINATION: Normal LABORATORY DATA: Please see below. IMAGING: Chest x-ray: Findings: A multi lead pacemaker is seen in the right heart via the left side as before. The patient is status post aortic valve replacement. Cardiomegaly is observed unchanged from the comparison study. Pulmonary vasculature is somewhat cephalized. There is no evidence of pleural effusion or pulmonary edema. No focal infiltrate. PROGNOSIS: Good ACTIVITY: As tolerated. 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 Home DISCHARGE INSTRUCTIONS: 1. As per discharge instructions. ITEMS TO FOLLOWUP ON ON OUTPATIENT: 1. Follow-up with Dr. Boone in one week. DISCHARGE CONDITION: Stable. TIME SPENT ON DISCHARGE: Greater than 35 minutes. Vital Signs/I&Os Vital Signs Date Time Temp Pulse Resp B/P (MAP) Pulse Ox O2 Delivery O2 Flow Rate FiO2 08/20/19 09:00 58 08/20/19 08:00 97.3 18 92/45 (61) 94 Room Air I&O- Last 24 Hours up to 6 AM 08/20/19 06:00 Intake Total 240 ml Output Total 260 ml Balance -20 ml Laboratory Data Labs 24H Laboratory Tests 2 08/19/19 12:09: Bedside Glucose (Misc Panel) 179H 08/19/19 17:25: Bedside Glucose (Misc Panel) 237H 08/19/19 20:08: Bedside Glucose (Misc Panel) 255H 08/20/19 05:39: Immature Granulocyte % (Auto) 0.7, Neutrophils (%) (Auto) 69.7H, Lymphocytes (%) (Auto) 13.7L, Monocytes (%) (Auto) 10.0H, Eosinophils (%) (Auto) 4.9H, Basophils (%) (Auto) 1.0, Neutrophils # (Auto) 5.1, Lymphocytes # (Auto) 1.0L, Monocytes # (Auto) 0.7, Eosinophils # (Auto) 0.4, Basophils # (Auto) 0.1, Nucleated Red Blood Cells % (auto) 0.0, Anion Gap 7L, Glomerular Filtration Rate 36.8, Calcium Level 8.5L, Total Bilirubin 1.4H, Aspartate Amino Transf (AST/SGOT) 25, Alanine Aminotransferase (ALT/SGPT) 26, Alkaline Phosphatase 121H, RC-Hrv-F-Type Natriuretic Peptide 445, Total Protein 6.5, Albumin 3.2, Albumin/Globulin Ratio 0.97L CBC/BMP Laboratory Tests 08/20/19 05:39 FSBS Laboratory Tests Test 08/19/19 12:09 08/19/19 17:25 08/19/19 20:08 Range/Units Bedside Glucose (Misc Panel) 179 237 255 83-110 MG/DL Microbiology Microbiology 08/18/19 Blood Culture - Preliminary, Resulted No growth after 24 hours . All specim... 08/18/19 Respiratory Virus Panel (PCR) ([facility]) - Final, Complete 08/18/19 Blood Culture - Preliminary, Resulted No growth after 24 hours . All specim... Discharge Medications Scheduled Amiodarone HCl (Amiodarone HCl) 200 Mg Tab, 200 MG PO DAILY, (Reported) Aspirin (Aspir 81) 81 Mg Tab, 81 MG PO QPM, (Reported) Atorvastatin Calcium (Atorvastatin Calcium) 40 Mg Tablet, 40 MG PO DAILY, (Reported) Carvedilol (Carvedilol) 6.25 Mg Tab, 6.25 MG PO BID, (Reported) Dapagliflozin Propanediol (Farxiga) 10 Mg Tablet, 10 MG PO DAILY, (Reported) Digoxin (Digoxin) 125 Mcg Tablet, 125 MCG PO DAILY, (Reported) Dulaglutide (Trulicity) 0.75 Mg/0.5 Ml Pen.injctr, 0.75 MG SC QWEEK, (Reported) SUNDAYS Ergocalciferol (Vitamin D2) (Vitamin D2) 50,000 Units Cap, 50,000 UNITS PO QWEEK, (Reported) SUNDAYS Fluoxetine Hcl (Fluoxetine HCl) 20 Mg Cap, 20 MG PO DAILY, (Reported) Gabapentin (Gabapentin) 300 Mg Capsule, 300 MG PO QHS, (Reported) Glimepiride (Glimepiride) 4 Mg Tab, 8 MG PO DAILY, (Reported) Indapamide (Indapamide) 1.25 Mg Tablet, 1.25 MG PO DAILY, (Reported) Insulin Glargine,Hum.rec.anlog (Basaglar Kwikpen U-100) 100 Unit/Ml Inj, 60 UNITS SC DAILY, (Reported) Levothyroxine Sodium (Levoxyl) 112 Mcg Tablet, 112 MCG PO DAILY, (Reported) Lisinopril (Lisinopril) 5 Mg Tab, 5 MG PO DAILY, (Reported) Magnesium Oxide (Magnesium Oxide) 400 Mg Tab, 800 MG PO BID, (Reported) Sacubitril/Valsartan (Entresto 24 mg-26 mg Tablet) 1 Each Tablet, 1 TAB PO BID, (Reported) Sitagliptin Phosphate (Januvia) 100 Mg Tab, 100 MG PO DAILY, (Reported) Tamsulosin HCl (Flomax) 0.4 Mg Cap, 0.4 MG PO BID, (Reported) INCREASED TO BID ABOUT ONE WEEK AGO Scheduled PRN Gabapentin (Gabapentin) 300 Mg Capsule, 300 MG PO BID PRN for PAIN, (Reported) Naproxen Sodium (Aleve) 220 Mg Tablet, 220 MG PO BID PRN for PAIN, (Reported) Allergies Coded Allergies: azithromycin (Verified Allergy, Intermediate, RASH, 08/18/19) ROULA SANTOS MD Aug 20, 2019 09:49
--- NOTE | 2019-08-20 11:15 | ECHO ---
DATE OF STUDY: 08/19/2019 REFERRING PHYSICIAN: Dr. Saul Noriega INDICATION: Heart failure, unspecified. HEIGHT: 175 cm WEIGHT: 132 kg 2-D MEASUREMENTS: Ventricular septum: 1.32 cm Posterior wall: 1.15 cm Left ventricle diastole: 7.9 cm Left atrium: 5.1 cm Aortic root: 3.1 cm DOPPLER MEASUREMENTS: Aortic valve velocity: 230 cm/sec LVOT velocity: 91.7 cm/sec LVOT VTI: 20.9 cm No aortic stenosis No aortic regurgitation No mitral regurgitation Mitral E velocity: 59.3 cm/sec Mitral A velocity: 99.2 cm/sec Mitral deceleration time: 194 ms No tricuspid regurgitation No pulmonic regurgitation Pulmonary artery systolic pressure: 14 mmHg MITRAL ANNULAR TISSUE DOPPLER E prime lateral: 4.8 cm/sec E prime septal: 3.6 cm/sec DESCRIPTION: The rhythm was probably atrial paced. This was a moderately technically difficult echocardiogram. No pericardial effusion. CONCLUSIONS: 1. Severely dilated left ventricle with low cardiac output state. Grade 1 LV diastolic dysfunction (impaired relaxation filling pattern). Dyskinesis of the basal and mid anteroseptal segments (could be paradoxical septal motion). Akinesis of the anterior wall at basal and midclavicular levels. Akinesis of the apex and apical cap segment. Severe global hypokinesis elsewhere. 2. Moderate left atrial dilatation. 3. Mild mitral annular calcification. No mitral regurgitation seen. 4. Moderately technically difficult echocardiogram. 5. Normal right ventricle size and systolic function. 6. Mild aortic valve sclerosis. No aortic regurgitation or stenosis. 7. Presence of cardiac rhythm management leads in the right side of the heart including an implantable cardioverter defibrillator (ICD) lead coursing towards the right ventricular apex. Left ventricular ejection fraction estimated to be 15-20% by visual estimate.
[2019-08-20 12:00] VITALS: BP 125/57
[2019-08-20] MEDS ORDERED: LASI40TA9 PO (12:28)
[2019-08-23 14:07] LABS: AMIODARONE (CORDARONE) 1.5 ug/mL (1.0-2.5)
== END 2019-08-20 14:10 | disposition home or self-care (01) | DRG 291 ==
LOC: M ED 12:05 → M ED INP 15:53 → ENRESERVDT 20:08 → ENRESERVTM 20:08 → M PCU 21:53
PROVIDERS: ADMIT Internal Medicine; ATTEND Internal Medicine
DX: I13.0 Hypertensive heart and chronic kidney disease with heart failure and stage 1 through stage 4 chronic kidney disease, or unspecified chronic kidney disease (principal); I50.21 Acute systolic (congestive) heart failure; Z68.41 Body mass index [BMI] 40.0-44.9, adult; N18.1 Chronic kidney disease, stage 1; E66.01 Morbid (severe) obesity due to excess calories; E11.22 Type 2 diabetes mellitus with diabetic chronic kidney disease; E78.5 Hyperlipidemia, unspecified; I48.91 Unspecified atrial fibrillation; I25.10 Atherosclerotic heart disease of native coronary artery without angina pectoris; E03.9 Hypothyroidism, unspecified; N40.0 Benign prostatic hyperplasia without lower urinary tract symptoms; Z79.82 Long term (current) use of aspirin; Z79.4 Long term (current) use of insulin; Z79.899 Other long term (current) drug therapy; Z88.1 Allergy status to other antibiotic agents; Z95.810 Presence of automatic (implantable) cardiac defibrillator

== ENCOUNTER → 2019-08-31 | Outpatient (REF) | payer MEDICARE ==
[~2019-08-31] MED LIST changes: +ALEV220T22 PO; +ATOR40TA75 PO; +DIGO0.123 PO; +ENTR1TAB PO; +FARX1TAB3 PO; +GABA-843 PO; +INDA125TA PO; +LASI40TA9 PO; +LEVO112T25 PO; +TRUL10IN SC; +VITA50005 PO
[2019-08-31 11:11] LABS: FREE T4 1.12 NG/DL (0.76-1.46)
== END ==
LOC: M LABDRAW1 08:43
PROVIDERS: ATTEND Physician Assistant
DX: E03.9 Hypothyroidism, unspecified (principal)

== ENCOUNTER → 2019-08-31 | Outpatient (REF) | payer MEDICARE ==
[2019-09-02 12:24] LABS: CALCIUM LEVEL 8.3 MG/DL (8.8-10.2); CREATININE FOR GFR 1.64 MG/DL (0.70-1.30); MAGNESIUM LEVEL 2.3 MG/DL (1.8-2.4); POTASSIUM SERUM 5.2 MEQ/L (3.5-5.1)
== END ==
LOC: M LAB REF 12:12
PROVIDERS: ATTEND Physician Assistant
DX: I50.42 Chronic combined systolic (congestive) and diastolic (congestive) heart failure (principal)

== ENCOUNTER → 2019-09-08 | Outpatient (REF) | payer MEDICARE ==
[2019-09-08 15:48] LABS: CALCIUM LEVEL 8.4 MG/DL (8.8-10.2); CREATININE FOR GFR 1.85 MG/DL (0.70-1.30); GLOMERULAR FILTRATION RATE 37.4 (>35); POTASSIUM SERUM 4.4 MEQ/L (3.5-5.1)
== END ==
LOC: M LABDRAW1 13:10
PROVIDERS: ATTEND Physician Assistant
DX: I50.42 Chronic combined systolic (congestive) and diastolic (congestive) heart failure (principal)

== ENCOUNTER 2019-09-28 09:28 | Inpatient (IN) | payer MEDICARE ==
[~2019-09-28] VITALS: Ht 175.3 cm; Wt 124.0 kg
--- NOTE | 2019-09-28 10:38 | REP ---
REASON: Followup. COMPARISON: 08/20/2019. Patchy right lower and possibly right upper lobe opacities seemed to have developed since the last exam on this limited portable chest. The technique utilized in obtaining the radiograph has magnified the cardiac silhouette and accentuated the interstitial markings. The cardiac silhouette is enlarged and magnified by technique. There is no change in the dual chambered bipolar pacemaker device. There is no change in the osseous structures. IMPRESSION: Suspect new patchy opacities as described above. Subsegmental atelectasis or pneumonia. This needs to be correlated clinically. Consider PA and lateral views of the chest. Electronically Signed by Carlos López DO 09/28/2019 11:13 A
[2019-09-28 10:45] LABS: BASO # 0.1 10^3/uL (0.0-0.2); BASO % 0.7 % (0.0-1.0); EOS # 0.2 10^3/uL (0.0-0.5); EOS % 2.6 % (0.0-3.0); HEMATOCRIT 47.7 % (42.0-52.0); HEMOGLOBIN 15.5 g/dl (13.5-17.5); LYMPH % 11.9 % (24.0-44.0); MEAN CORPUSCULAR HEMOGLOBIN 28.7 pg (27.0-33.0); MEAN CORPUSCULAR HGB CONC 32.5 g/dl (32.0-36.5); MEAN CORPUSCULAR VOLUME 88.2 fl (80.0-96.0); MONO # 0.9 10^3/uL (0.0-0.8); MONO % 11.1 % (0.0-5.0); NEUTROPHILS # 6.1 10^3/uL (1.5-8.5); PLATELET COUNT, AUTOMATED 336 10^3/uL (150-450); RED BLOOD COUNT 5.41 10^6/uL (4.30-6.10); WHITE BLOOD COUNT 8.5 10^3/uL (4.0-10.0)
[2019-09-28] MEDS ORDERED: saw palmetto PO (11:14)
[2019-09-28 11:25] LABS: ALBUMIN 2.3 GM/DL (3.2-5.2); BILIRUBIN,DIRECT 0.3 MG/DL (0.0-0.2); BILIRUBIN,TOTAL 0.9 MG/DL (0.2-1.0); CALCIUM LEVEL 8.6 MG/DL (8.8-10.2); CK-MB VALUE MASS 5.5 NG/ML (<3.6); CREATININE FOR GFR 1.52 MG/DL (0.70-1.30); DIGOXIN LEVEL 1.1 NG/ML (0.5-2.0); MB/CK RELATIVE INDEX 1.76 (< OR =4); POTASSIUM SERUM 3.7 MEQ/L (3.5-5.1); THYROID STIMULATING HORMONE 5.85 uIU/ML (0.358-3.740); TOTAL PROTEIN 6.1 GM/DL (6.4-8.2); TROPONIN I 0.03 NG/ML (< 0.10)
--- NOTE | 2019-09-28 11:35 | REP ---
CT CHEST WITHOUT IV CONTRAST: CT chest performed without IV contrast. Sagittal and coronal reconstruction images are performed. Comparison is made with prior CT angiogram of the chest 12/24/2007. Anteriorly in the right upper hemithorax there is as subpleural oval lobulated nodule measuring approximately 1.8 x 1.3 cm. This appears suspicious. Just superior to that there is apparent neoplastic/metastatic involvement of the anterior end of the right 3rd rib with associated surrounding soft tissue mass. Pleural based soft tissue at that location measures about 3.8 x 1.0 cm. There is mild scattered thickening of the fissures of the right lung. There appears to be mild scattered fibrotic scarring. A focal 5 mm subpleural scar is seen in the left lower lobe. There is mild to moderate cardiomegaly. There are tiny pleural effusions bilaterally. There is no pericardial effusion. There is no axillary or mediastinal adenopathy seen. There is atherosclerotic calcification of the thoracic aorta without aneurysm. There are degenerative changes of the spine. Tiny calcifications are seen in the pancreas suggesting chronic pancreatitis. IMPRESSION: Pleural based suspicious nodule right upper hemithorax 1.8 x 1.3 cm. There is adjacent mixed sclerotic density and apparent metastatic involvement of the anterior aspect of the right 3rd rib with surrounding soft tissue mass. Pleural based soft tissue at that location measures 3.8 x 1.0 cm. There are scattered areas of fibrotic scarring in the lungs. There is mild to moderate cardiomegaly. There is no evidence of axillary or mediastinal adenopathy. Electronically Signed by Jona Flores MD 09/28/2019 12:06 P
--- NOTE | 2019-09-28 11:59 | REP ---
CT BRAIN WITHOUT CONTRAST: CT brain performed without IV contrast. There moderate atrophy. There is no midline shift or mass effect. Patchy chronic periventricular small vessel ischemic changes are seen bilaterally. There is no acute intracranial hemorrhage. There is no extra-axial fluid collection. No skull fracture is seen. There are vascular calcifications and carotid siphons. There is mild opacification of inferior right mastoid air cells compatible with mild right-sided mastoiditis. IMPRESSION: Chronic atrophy and periventricular small vessel ischemic changes. No evidence of acute intracranial hemorrhage or skull fracture. Mild right-sided mastoiditis. Electronically Signed by Jona Flores MD 09/28/2019 12:07 P
[2019-09-28] MEDS ORDERED: HEPARIN SOD (PORCINE) 5000UNITS/ML VIAL (J1644 PER 1000UNITS) SC SCH (14:15)
[2019-09-28] MEDS ORDERED: GLUCOSE 4GM CHEW TABLET PO PRN (15:00)
[2019-09-28] MEDS ORDERED: DEXTROSE 50% 50 ML SYRINGE IV PRN (15:00)
[2019-09-28] MEDS ORDERED: GLUCAGON INJ 1MG VIAL SC PRN (15:00)
--- NOTE | 2019-09-28 15:11 | ECGEPIP ---
[facility] - ED Test Date: 2019-09-28 Pat Name: ABHI DYE Department: Room: - Gender: Male [employer]: Charles DONOHUE : 1935 Requested By: LONNY APONTE Order Number: [id number] Reading MD: Porsha Valderrama Measurements Intervals [place] Rate: 69 P: 75 OK: 143 QRS: 159 QRSD: 170 T: 0 QT: 270 QTc: 290 Interpretive Statements ELECTRONIC VENTRICULAR PACEMAKER ABNORMAL RHYTHM ECG SIMILAR 08/18/19 Electronically Signed on 09-28-2019 15:11:36 EDT by Porsha Valderrama
--- NOTE | 2019-09-28 15:27 | HPEPDOC ---
General Date of Admission Sep 28, 2019 at 14:15 Date of Service: Sep 28, 2019 Chief Complaint The patient is a 84-year-old male admitted with a reason for visit of Physical Deconditioning. Source: Patient Timing/Duration: Day(s) Severity: Moderate Associated Symptoms: Mechanical fall History of Present Illness Patient is 84 years old male with past medical history of type 2 diabetes, dyslipidemia, atrial fibrillation not on the anticoagulation due to frequent falls, systolic congestive heart failure with ejection fraction around 20% presented hospital with history of multiple falls. Patient did fall multiple times for past few days. In emergency room patient was found to have no leukocytosis, hemoglobin 15.5, no profound electrolytes abnormalities, elevated alkaline phosphatase of 353. Head CT was negative for acute bleed or acute ischemic stroke. Chest CT showed Pleural based suspicious nodule right upper hemithorax 1.8 x 1.3 cm with metastatic involvement of the anterior aspect of the right 3rd rib with surrounding soft tissue mass. Patient denied fever, chills, nausea, vomiting, chest pain, palpitations, diarrhea or dysuria Home Medications Scheduled Amiodarone HCl (Amiodarone HCl) 200 Mg Tab, 200 MG PO DAILY, (Reported) Aspirin (Aspir 81) 81 Mg Tab, 81 MG PO QPM, (Reported) Atorvastatin Calcium (Atorvastatin Calcium) 40 Mg Tablet, 40 MG PO DAILY, (Reported) Carvedilol (Carvedilol) 6.25 Mg Tab, 6.25 MG PO BID, (Reported) Dapagliflozin Propanediol (Farxiga) 10 Mg Tablet, 5 MG PO DAILY, (Reported) Digoxin (Digoxin) 125 Mcg Tablet, 125 MCG PO DAILY, (Reported) Dulaglutide (Trulicity) 0.75 Mg/0.5 Ml Pen.injctr, 0.75 MG SC QWEEK, (Reported) SUNDAYS Ergocalciferol (Vitamin D2) (Vitamin D2) 50,000 Units Cap, 50,000 UNITS PO QWEEK, (Reported) SUNDAYS Fluoxetine Hcl (Fluoxetine HCl) 20 Mg Cap, 20 MG PO DAILY, (Reported) Glimepiride (Glimepiride) 4 Mg Tab, 8 MG PO DAILY, (Reported) Indapamide (Indapamide) 1.25 Mg Tablet, 1.25 MG PO DAILY, (Reported) Insulin Glargine,Hum.rec.anlog (Bebaaglalyssa Rivers U-100) 100 Unit/Ml Inj, 60 UNITS SC DAILY, (Reported) Levothyroxine Sodium (Levoxyl) 112 Mcg Tablet, 112 MCG PO DAILY, (Reported) Magnesium Oxide (Magnesium Oxide) 400 Mg Tab, 800 MG PO BID, (Reported) Sacubitril/Valsartan (Entresto 24 mg-26 mg Tablet) 1 Each Tablet, 1 TAB PO BID, (Reported) Sitagliptin Phosphate (Januvia) 100 Mg Tab, 100 MG PO DAILY, (Reported) Tamsulosin HCl (Flomax) 0.4 Mg Cap, 0.4 MG PO DAILY, (Reported) Scheduled PRN Naproxen Sodium (Aleve) 220 Mg Tablet, 220 MG PO BID PRN for PAIN, (Reported) Allergies Coded Allergies: azithromycin (Verified Allergy, Intermediate, RASH, 08/18/19) Past Medical History Medical History hypertension, diabetes mellitus, dyslipidemia, atrial fibrillation not on anticoagulation, systolic congestive heart failure with an EF of 20% in 2012 status post ICD, CAD, hypothyroidism, BPH, and chronic kidney disease Surgical History ICD placement in 2012, lateral internal sphincterotomy, rectal fistula repair Family History I personally reviewed family history and found non significant Social History * Smoker: Denies, former Smoker Alcohol: Denies Drugs: denies A-FIB/CHADSVASC A-FIB History Current/History of A-Fib/PAF?: No Current PO Anticoag Therapy: No (due to frequent fall) Review of Systems Constitutional: Denies: Chills, Fever Eyes: Denies: Pain, Vision change ENT: Denies: Head Aches Skin: Denies: Rash, Lesions Pulmonary: Denies: Dyspnea, Cough Cardiovascular: Denies: Chest Pain, Palpitations Gastrointestinal: Denies: Vomiting Genitourinary: Denies: Dysuria, Frequency Endocrine: Denies: Polydipsia Musculoskeletal: Reports: Other Symptoms (frequent fall) Neurological: Reports: Weakness; Denies: Change in speech, Confusion Psych: Reports: Mood Normal Physical Examination General Exam: Positive: Alert Eye Exam: Positive: PERRLA ENT Exam: Positive: Atraumatic Neck Exam: Positive: Supple, JVD Chest Exam: Positive: Diminished Heart Exam: Positive: Irregular Rhythm Telemetry: Positive: No significant arrhythmia, Atrial fibrillation Abdomen Exam: Positive: Normal bowel sounds Extremity Exam: Negative: Clubbing Neuro Exam: Positive: Strength at 5/5 X4 ext, Cranial Nerves 3-12 NL Psych Exam: Positive: Mental status NL Vital Signs Vital Signs Date Time Temp Pulse Resp B/P (MAP) Pulse Ox O2 Delivery O2 Flow Rate FiO2 09/28/19 14:35 67 26 129/61 (83) 94 Room Air 09/28/19 13:30 97.4 Laboratory Data Labs 24H Laboratory Tests 2 09/28/19 10:09: Bedside Glucose (Misc Panel) 149H 09/28/19 10:21: Immature Granulocyte % (Auto) 1.7, Neutrophils (%) (Auto) 72.0H, Lymphocytes (%) (Auto) 11.9L, Monocytes (%) (Auto) 11.1H, Eosinophils (%) (Auto) 2.6, Basophils (%) (Auto) 0.7, Neutrophils # (Auto) 6.1, Lymphocytes # (Auto) 1.0L, Monocytes # (Auto) 0.9H, Eosinophils # (Auto) 0.2, Basophils # (Auto) 0.1, Nucleated Red Blood Cells % (auto) 0.0, Anion Gap 5L, Glomerular Filtration Rate 47.0, Lactic Acid Level 1.5, Calcium Level 8.6L, Total Bilirubin 0.9, Direct Bilirubin 0.3H, Aspartate Amino Transf (AST/SGOT) 43H, Alanine Aminotransferase (ALT/SGPT) 29, Alkaline Phosphatase 353H, Total Creatine Kinase 312H, Creatine Kinase MB 5.5H, Creatine Kinase MB Relative Index 1.76, Troponin I 0.03, Total Protein 6.1L, Albumin 2.3L, Albumin/Globulin Ratio 0.61L, Thyroid Stimulating Hormone (TSH) 5.850H, Digoxin Level 1.1 CBC/BMP Laboratory Tests 09/28/19 10:21 Microbiology Microbiology 09/28/19 Blood Culture, Received Pending 09/28/19 Blood Culture, Received Pending Assessment/Plan Patient is 84 years old male with past medical history of type 2 diabetes, dyslipidemia, atrial fibrillation not on the anticoagulation due to frequent falls, systolic congestive heart failure with ejection fraction around 20% presented hospital with history of multiple falls. Patient did fall multiple times for past few days. In emergency room patient was found to have no leukocytosis, hemoglobin 15.5, no profound electrolytes abnormalities, elevated alkaline phosphatase of 353. Head CT was negative for acute bleed or acute ischemic stroke. Chest CT showed Pleural based suspicious nodule right upper hemithorax 1.8 x 1.3 cm with metastatic involvement of the anterior aspect of the right 3rd rib with surrounding soft tissue mass. Patient denied fever, chills, nausea, vomiting, chest pain, palpitations, diarrhea or dysuria Problems (1) Physical deconditioning Status: Chronic Problem Text: multiple falls in the past due to deconditioning most likely pt will need placement to SNF PT/OT (2) Lung malignancy Status: Acute Problem Text: new findings on CT chest Pt will need biopsy of the lung nodule I will discuss with BRANDON, his daughter, about our next step in management (3) Systolic CHF Status: Chronic Problem Text: Not in acute exacerbation Continue cardioprotective medications (4) Diabetes mellitus Status: Chronic Problem Text: Insulin sliding scale Detemir twice a day Diabetes diet (5) Obesity Status: Chronic Problem Text: complicated care Plan / VTE VTE Prophylaxis Ordered?: Yes IAN LEVY DO Sep 28, 2019 15:27
[2019-09-28 15:35] VITALS: BP 138/65
[2019-09-28] MEDS: HumaLOG INSULIN (NovoLOG) PER UNIT SC SCH ×2 (17:10→19:52)
[2019-09-28] MEDS ORDERED: ASPIRIN 81 MG ENTERIC TAB PO SCH (18:00)
[2019-09-28] MEDS: HEPARIN SOD (PORCINE) 5000UNITS/ML VIAL (J1644 PER 1000UNITS) SC SCH (19:51)
[2019-09-28] MEDS: CARVedilol 6.25 MG TAB PO SCH (19:52)
[2019-09-28] MEDS ORDERED: LEVEMIR (INSULIN DETEMIR) 1 UNITS/0.01ML SC SCH (21:00)
[2019-09-28 22:00] VITALS: BP 133/68
[2019-09-28] MEDS: ENTRESTO 24-26MG TABLET (SACUBITRIL/VALSARTAN) PO SCH (22:55)
[2019-09-29] MEDS: LEVOTHYROXINE 112MCG TABLET (0.112MG) PO SCH (05:09)
[2019-09-29 06:00] VITALS: BP 121/72
[2019-09-29 06:03] LABS: HEMATOCRIT 45.2 % (42.0-52.0); HEMOGLOBIN 14.8 g/dl (13.5-17.5); MEAN CORPUSCULAR HEMOGLOBIN 28.2 pg (27.0-33.0); MEAN CORPUSCULAR HGB CONC 32.7 g/dl (32.0-36.5); MEAN CORPUSCULAR VOLUME 86.1 fl (80.0-96.0); PLATELET COUNT, AUTOMATED 303 10^3/uL (150-450); RED BLOOD COUNT 5.25 10^6/uL (4.30-6.10); WHITE BLOOD COUNT 7.2 10^3/uL (4.0-10.0)
[2019-09-29 06:19] LABS: CALCIUM LEVEL 9.1 MG/DL (8.8-10.2); CREATININE FOR GFR 1.36 MG/DL (0.70-1.30); GLOMERULAR FILTRATION RATE 53.4 (>35); POTASSIUM SERUM 3.2 MEQ/L (3.5-5.1)
[2019-09-29] MEDS: HumaLOG INSULIN (NovoLOG) PER UNIT SC SCH ×4 (07:27→20:51)
[2019-09-29] MEDS ORDERED: POTASSIUM CHLORIDE 10 MEQ SR TABLET PO ONE (07:30)
[2019-09-29] MEDS: ENTRESTO 24-26MG TABLET (SACUBITRIL/VALSARTAN) PO SCH ×2 (08:17→20:50)
[2019-09-29] MEDS: HEPARIN SOD (PORCINE) 5000UNITS/ML VIAL (J1644 PER 1000UNITS) SC SCH (08:17)
[2019-09-29] MEDS: AMIODARONE 200 MG TAB (PACERONE) PO SCH (08:18)
[2019-09-29] MEDS: FLUoxetine 20 MG CAP PO SCH (08:18)
[2019-09-29] MEDS: INDAPAMIDE 1.25MG TABLET PO SCH (08:19)
[2019-09-29] MEDS: DIGOXIN 0.125 MG TAB PO SCH (08:21)
[2019-09-29] MEDS: TAMSULOSIN 0.4 MG CAP PO SCH (08:21)
[2019-09-29] MEDS: CARVedilol 6.25 MG TAB PO SCH ×2 (08:21→20:50)
[2019-09-29] MEDS: LEVEMIR (INSULIN DETEMIR) 1 UNITS/0.01ML SC SCH ×2 (08:57→20:51)
[2019-09-29] MEDS ORDERED: lisinopriL 5 MG TAB PO SCH (09:00)
[2019-09-29] MEDS ORDERED: LEVEMIR (INSULIN DETEMIR) 1 UNITS/0.01ML SC SCH (09:00)
[2019-09-29] MEDS ORDERED: ATORVASTATIN 20 MG TAB PO SCH (09:00)
[2019-09-29] MEDS ORDERED: SCOPOLAMINE 1MG TRANSDERMAL PATCH TOP PRN (12:00)
[2019-09-29] MEDS ORDERED: FLEET ENEMA PR PRN (12:00)
[2019-09-29] MEDS ORDERED: BISACODYL 10 MG SUPP PR PRN (12:00)
[2019-09-29] MEDS ORDERED: ACETAMINOPHEN TAB 650MG DOSE (2X325MG) PO PRN (12:00)
--- NOTE | 2019-09-29 12:03 | IPNPDOC ---
Text Note Date of Service The patient was seen on 09/29/19. NOTE Subjective: No any acute events overnight. Patient denied fever, chills, nausea, vomiting, diarrhea or dysuria PHYSICAL EXAMINATION VITAL SIGNS: Please see below. GENERAL: awake, alert, NAD HEENT: NCAT, anicteric sclera, JAYLA NECK: supple, plus JVD CARDIOVASCULAR EXAMINATION: NS1S2, irregularly irregular RESPIRATORY EXAMINATION: CTA b/l, no wheezes/rales/rhonchi ABDOMINAL EXAMINATION: positive bowel sounds x 4, NT EXTREMITIES: no cyanosis, clubbing, edema SKIN: warm, no rashes. NEUROLOGICAL EXAMINATION: AAO x 3, no motor/sensory deficits PSYCHIATRIC EXAMINATION: calm, normal affect Assessment/Plan Patient is 84 years old male with past medical history of type 2 diabetes, dyslipidemia, atrial fibrillation not on the anticoagulation due to frequent falls, systolic congestive heart failure with ejection fraction around 20% presented hospital with history of multiple falls. Patient did fall multiple times for past few days. In emergency room patient was found to have no leukocytosis, hemoglobin 15.5, no profound electrolytes abnormalities, elevated alkaline phosphatase of 353. Head CT was negative for acute bleed or acute ischemic stroke. Chest CT showed Pleural based suspicious nodule right upper hemithorax 1.8 x 1.3 cm with metastatic involvement of the anterior aspect of the right 3rd rib with surrounding soft tissue mass. Patient denied fever, chill s, nausea, vomiting, chest pain, palpitations, diarrhea or dysuria. After discussion with family patient was transferred to [facility] status. Family wants to continue cardioprotective and diabetes medications in the hospital settings. Problems (1) Physical deconditioning multiple falls in the past due to deconditioning Await bed in the hospice (2)Lung malignancy new findings on CT chest Family doesn't want aggressive treatment (3) Systolic CHF Not in acute exacerbation Continue cardioprotective medications (4) Diabetes mellitus Insulin sliding scale Detemir twice a day Diabetes diet (5) Obesity complicated care VS,Fishbone, I+O VS, Fishbone, I+O Laboratory Tests 09/29/19 05:36 Vital Signs Date Time Temp Pulse Resp B/P (MAP) Pulse Ox O2 Delivery O2 Flow Rate FiO2 09/29/19 08:21 61 09/29/19 08:21 121/72 09/29/19 06:00 97.7 16 95 Room Air I&O- Last 24 Hours up to 6 AM 09/29/19 06:00 Intake Total 1020 ml Output Total 0 ml Balance 1020 ml IAN LEVY DO Sep 29, 2019 12:03
[2019-09-30] MEDS: LEVOTHYROXINE 112MCG TABLET (0.112MG) PO SCH (05:44)
[2019-09-30] MEDS: HumaLOG INSULIN (NovoLOG) PER UNIT SC SCH ×4 (07:25→20:26)
[2019-09-30] MEDS: ENTRESTO 24-26MG TABLET (SACUBITRIL/VALSARTAN) PO SCH ×2 (08:11→20:30)
[2019-09-30] MEDS: AMIODARONE 200 MG TAB (PACERONE) PO SCH (08:11)
[2019-09-30] MEDS: DIGOXIN 0.125 MG TAB PO SCH (08:11)
[2019-09-30] MEDS: LEVEMIR (INSULIN DETEMIR) 1 UNITS/0.01ML SC SCH ×2 (08:12→20:27)
[2019-09-30] MEDS: INDAPAMIDE 1.25MG TABLET PO SCH (08:12)
[2019-09-30] MEDS: CARVedilol 6.25 MG TAB PO SCH ×2 (08:12→20:26)
[2019-09-30] MEDS: TAMSULOSIN 0.4 MG CAP PO SCH (08:12)
[2019-09-30] MEDS: FLUoxetine 20 MG CAP PO SCH (08:12)
[2019-09-30 20:18] VITALS: BP 99/69
[2019-09-30] MEDS: RAMELTEON 8 MG TAB (ROZEREM) PO SCH (20:30)
[2019-10-01] MEDS: LEVOTHYROXINE 112MCG TABLET (0.112MG) PO SCH (05:49)
[2019-10-01] MEDS: HumaLOG INSULIN (NovoLOG) PER UNIT SC SCH ×5 (06:53→20:06)
[2019-10-01] MEDS: ENTRESTO 24-26MG TABLET (SACUBITRIL/VALSARTAN) PO SCH ×2 (08:29→20:05)
[2019-10-01] MEDS: TAMSULOSIN 0.4 MG CAP PO SCH (08:29)
[2019-10-01] MEDS: FLUoxetine 20 MG CAP PO SCH (08:29)
[2019-10-01 08:30] VITALS: BP 99/69
[2019-10-01] MEDS: LEVEMIR (INSULIN DETEMIR) 1 UNITS/0.01ML SC SCH ×2 (08:30→20:06)
[2019-10-01] MEDS: CARVedilol 6.25 MG TAB PO SCH ×2 (08:30→20:05)
[2019-10-01] MEDS: INDAPAMIDE 1.25MG TABLET PO SCH (08:30)
[2019-10-01] MEDS: AMIODARONE 200 MG TAB (PACERONE) PO SCH (08:30)
[2019-10-01] MEDS: DIGOXIN 0.125 MG TAB PO SCH (08:30)
[2019-10-01] MEDS: MORPHINE 2 MG/ML 1ML VIAL (J2270) IV PRN ×5 (12:30→22:31)
[2019-10-01] MEDS: RAMELTEON 8 MG TAB (ROZEREM) PO SCH (20:05)
[2019-10-02] MEDS: MORPHINE 2 MG/ML 1ML VIAL (J2270) IV PRN ×6 (02:13→21:24)
[2019-10-02] MEDS: LEVOTHYROXINE 112MCG TABLET (0.112MG) PO SCH (04:16)
[2019-10-02] MEDS: HumaLOG INSULIN (NovoLOG) PER UNIT SC SCH ×4 (07:17→21:00)
[2019-10-02] MEDS: FLUoxetine 20 MG CAP PO SCH (09:00)
[2019-10-02] MEDS: DIGOXIN 0.125 MG TAB PO SCH (09:00)
[2019-10-02] MEDS: AMIODARONE 200 MG TAB (PACERONE) PO SCH (09:00)
[2019-10-02] MEDS: TAMSULOSIN 0.4 MG CAP PO SCH (09:00)
[2019-10-02] MEDS: ENTRESTO 24-26MG TABLET (SACUBITRIL/VALSARTAN) PO SCH ×2 (09:00→21:00)
[2019-10-02] MEDS: LEVEMIR (INSULIN DETEMIR) 1 UNITS/0.01ML SC SCH ×2 (09:00→21:00)
[2019-10-02] MEDS ORDERED: VITAMIN D 50,000 UNITS CAPSULE (ERGOCALCIFEROL 1.25MG) PO SCH (09:00)
[2019-10-02] MEDS: CARVedilol 6.25 MG TAB PO SCH ×2 (09:00→21:00)
[2019-10-02] MEDS: INDAPAMIDE 1.25MG TABLET PO SCH (09:00)
[2019-10-02] MEDS: RAMELTEON 8 MG TAB (ROZEREM) PO SCH (21:00)
[2019-10-03] MEDS: ATROPINE SULFATE 1% OP SOLN 2 ML BTL SL PRN ×3 (05:39→23:45)
[2019-10-03] MEDS: MORPHINE 2 MG/ML 1ML VIAL (J2270) IV PRN ×3 (05:39→12:09)
[2019-10-03] MEDS: LEVOTHYROXINE 112MCG TABLET (0.112MG) PO SCH (05:56)
[2019-10-03] MEDS: HumaLOG INSULIN (NovoLOG) PER UNIT SC SCH ×2 (07:30→12:00)
[2019-10-03] MEDS: ENTRESTO 24-26MG TABLET (SACUBITRIL/VALSARTAN) PO SCH (08:48)
[2019-10-03] MEDS: CARVedilol 6.25 MG TAB PO SCH (08:48)
[2019-10-03] MEDS: FLUoxetine 20 MG CAP PO SCH (08:49)
[2019-10-03] MEDS: TAMSULOSIN 0.4 MG CAP PO SCH (08:49)
[2019-10-03] MEDS: INDAPAMIDE 1.25MG TABLET PO SCH (08:49)
[2019-10-03] MEDS: DIGOXIN 0.125 MG TAB PO SCH (08:49)
[2019-10-03] MEDS: AMIODARONE 200 MG TAB (PACERONE) PO SCH (08:49)
[2019-10-03] MEDS: LEVEMIR (INSULIN DETEMIR) 1 UNITS/0.01ML SC SCH (08:50)
[2019-10-03] MEDS: LORazepam 2 MG/ML VIAL (J2060) IV PRN ×2 (13:10→19:24)
--- NOTE | 2019-10-03 16:16 | CR ---
DATE OF CONSULTATION: 10/03/2019 CARDIOLOGY CONSULTATION REFERRING PHYSICIAN: Dr. Pickard INDICATION: Patient recently made comfort care measures only. Wishes his implantable cardioverter defibrillator to be inactivated. HISTORY: This 84-year-old father of three living, retired resident of [place], living with his daughter, is well known to my cardiology practice having a dilated cardiomyopathy with congestive heart failure (systolic and diastolic dysfunction) dating back to December 2007 with biventricular implantable cardioverter defibrillator placed at that time in light of heart failure with chronic left bundle branch block. Has subsequently undergone three pulse generator battery replacements, last April 07, 2018. Also underwent a minimally invasive aortic valve replacement (bioprosthetic) March 2013 for severe aortic stenosis. Does not have more than coronary luminal irregularities. Last echocardiogram August 19, 2019 showed a severely dilated left ventricle, left ventricular ejection fraction (LVE) 15-20% with severe global hypokinesis, moderate left atrial enlargement with grade 1 left ventricular (LV) diastolic dysfunction, normal right heart chamber sizes, appropriate bioprosthetic aortic valve function, mild mitral annular calcification without functional abnormality. Was recently admitted to [facility] after suffering a mechanical fall. Has fallen multiple times during the last few days. Was found on CT scan to have evidence of probable lung cancer with metastatic involvement of associated ribs and soft tissues. In light of his multiple medical problems and failing health, family wished him to be comfort care measures with DO NOT RESUSCITATE (DNR) and requests his ICD be inactivated. At the time of my visit, the patient was minimally responsive, respiratory rate was 20 per minute, heart rate was 70 beats per minute and regular. He was afebrile. Somewhat Kussmaul respiration. Well-healed ICD pulse generator incision left subclavian region. DEVICE NAME: [employer] ([employer], model #3357-40C LOCKSTITCH FRONT MAKER-D, serial #[id number]). Intracardiac electrograms: Atrial 1.5 mV; ventricular 11.8 mV. Pacing thresholds: Atrial 1.375 at 0.5 milliseconds; right ventricular 2.75 volts at 1.0 milliseconds; left ventricular 2.5 volts at 1.5 milliseconds. Estimated battery longevity 2.5 years. The patient has been pacing in the atrium only 3.6% of the time with low device pacing rate set at 50, paces in the ventricles more than 99% of the time. Has been free of any atrial or ventricular tachyarrhythmia. His tachycardia detection and therapies were programmed off as requested. Patient continues to have his device function as a biventricular pacemaker.
[2019-10-04] MEDS: MORPHINE 2 MG/ML 1ML VIAL (J2270) IV PRN (01:26)
--- NOTE | 2019-10-04 16:33 | DS.PDOC ---
Discharge Summary General Date of Admission Sep 28, 2019 at 14:15 Date of Discharge 10/04/19 Discharge Summary PROCEDURES PERFORMED DURING STAY: [None]. ADMITTING DIAGNOSES: Physical deconditioning Lung malignancy Systolic CHF Diabetes mellitus Obesity DISCHARGE DIAGNOSES: Physical deconditioning Lung malignancy Systolic CHF Diabetes mellitus Obesity COMPLICATIONS/CHIEF COMPLAINT: Physical Deconditioning. HISTORY OF PRESENT ILLNESS: Patient is 84 years old male with past medical history of type 2 diabetes, dyslipidemia, atrial fibrillation not on the anticoagulation due to frequent falls, systolic congestive heart failure with ejection fraction around 20% presented hospital with history of multiple falls. Patient did fall multiple times for past few days. In emergency room patient was found to have no leukocytosis, hemoglobin 15.5, no profound electrolytes abnormalities, elevated alkaline phosphatase of 353. Head CT was negative for acute bleed or acute ischemic stroke. Chest CT showed Pleural based suspicious nodule right upper hemithorax 1.8 x 1.3 cm with metastatic involvement of the anterior aspect of the right 3rd rib with surrounding soft tissue mass. Patient denied fever, chills, nausea, vomiting, chest pain, palpitations, diarrhea or dysuria. After discussion with family patient was transferred to [facility] status. Family wants to continue cardioprotective and diabetes medications in the hospital settings. HOSPITAL COURSE: At 5.25 AM patient from cardiorespiratory arrest. DISCHARGE MEDICATIONS: Please see below. ALLERGIES: Please see below. PHYSICAL EXAMINATION ON DISCHARGE: VITAL SIGNS: Please see below. GENERAL: HEENT: NECK: CARDIOVASCULAR EXAMINATION: RESPIRATORY EXAMINATION: ABDOMINAL EXAMINATION: EXTREMITIES: SKIN: NEUROLOGICAL EXAMINATION: PSYCHIATRIC EXAMINATION: LABORATORY DATA: Please see below. IMAGING: PROGNOSIS: ACTIVITY: [As tolerated]. DIET: DISCHARGE PLAN: DISPOSITION: 20 . DISCHARGE INSTRUCTIONS: 1. . ITEMS TO FOLLOWUP ON ON OUTPATIENT: 1. . DISCHARGE CONDITION: [Stable]. TIME SPENT ON DISCHARGE: Greater than minutes. Vital Signs/I&Os Vital Signs Date Time Temp Pulse Resp B/P (MAP) Pulse Ox O2 Delivery O2 Flow Rate FiO2 10/03/19 20:00 2.0 10/03/19 12:09 20 Nasal Cannula 10/03/19 09:27 94 10/01/19 08:30 72 10/01/19 08:30 99/69 09/29/19 06:00 97.7 I&O- Last 24 Hours up to 6 AM 10/04/19 06:00 Intake Total 0 ml Output Total 100 ml Balance -100 ml Microbiology Microbiology 09/28/19 Blood Culture - Final, Complete NO GROWTH AFTER 5 DAYS 09/28/19 Blood Culture - Final, Complete NO GROWTH AFTER 5 DAYS Discharge Medications Scheduled Amiodarone HCl (Amiodarone HCl) 200 Mg Tab, 200 MG PO DAILY, (Reported) Aspirin (Aspir 81) 81 Mg Tab, 81 MG PO QPM, (Reported) Atorvastatin Calcium (Atorvastatin Calcium) 40 Mg Tablet, 40 MG PO DAILY, (Reported) Carvedilol (Carvedilol) 6.25 Mg Tab, 6.25 MG PO BID, (Reported) Dapagliflozin Propanediol (Farxiga) 10 Mg Tablet, 5 MG PO DAILY, (Reported) Digoxin (Digoxin) 125 Mcg Tablet, 125 MCG PO DAILY, (Reported) Dulaglutide (Trulicity) 0.75 Mg/0.5 Ml Pen.injctr, 0.75 MG SC QWEEK, (Reported) SUNDAYS Ergocalciferol (Vitamin D2) (Vitamin D2) 50,000 Units Cap, 50,000 UNITS PO QWEEK, (Reported) SUNDAYS Fluoxetine Hcl (Fluoxetine HCl) 20 Mg Cap, 20 MG PO DAILY, (Reported) Glimepiride (Glimepiride) 4 Mg Tab, 8 MG PO DAILY, (Reported) Indapamide (Indapamide) 1.25 Mg Tablet, 1.25 MG PO DAILY, (Reported) Insulin Glargine,Hum.rec.anlog (Basaglar Kwikpen U-100) 100 Unit/Ml Inj, 60 UNITS SC DAILY, (Reported) Levothyroxine Sodium (Levoxyl) 112 Mcg Tablet, 112 MCG PO DAILY, (Reported) Magnesium Oxide (Magnesium Oxide) 400 Mg Tab, 800 MG PO BID, (Reported) Sacubitril/Valsartan (Entresto 24 mg-26 mg Tablet) 1 Each Tablet, 1 TAB PO BID, (Reported) Sitagliptin Phosphate (Januvia) 100 Mg Tab, 100 MG PO DAILY, (Reported) Tamsulosin HCl (Flomax) 0.4 Mg Cap, 0.4 MG PO DAILY, (Reported) Scheduled PRN Naproxen Sodium (Aleve) 220 Mg Tablet, 220 MG PO BID PRN for PAIN, (Reported) Allergies Coded Allergies: azithromycin (Verified Allergy, Intermediate, RASH, 08/18/19) IAN LEVY DO Oct 04, 2019 16:33
== END 2019-10-04 05:25 | disposition expired | DRG 181 ==
LOC: M ED 09:28 → M ED INP 14:15 → ENRESERV 14:19 → M MS5PR 14:45
PROVIDERS: ADMIT Internal Medicine; ATTEND Internal Medicine
DX: C34.11 Malignant neoplasm of upper lobe, right bronchus or lung (principal); I13.0 Hypertensive heart and chronic kidney disease with heart failure and stage 1 through stage 4 chronic kidney disease, or unspecified chronic kidney disease; C79.51 Secondary malignant neoplasm of bone; I42.0 Dilated cardiomyopathy; I50.42 Chronic combined systolic (congestive) and diastolic (congestive) heart failure; C79.89 Secondary malignant neoplasm of other specified sites; Z68.41 Body mass index [BMI] 40.0-44.9, adult; R54 Age-related physical debility; Z51.5 Encounter for palliative care; Z66 Do not resuscitate; I48.91 Unspecified atrial fibrillation; R53.81 Other malaise; E11.22 Type 2 diabetes mellitus with diabetic chronic kidney disease; R29.6 Repeated falls; I25.10 Atherosclerotic heart disease of native coronary artery without angina pectoris; E66.9 Obesity, unspecified; E03.9 Hypothyroidism, unspecified; N40.0 Benign prostatic hyperplasia without lower urinary tract symptoms; I44.7 Left bundle-branch block, unspecified; E78.5 Hyperlipidemia, unspecified; N18.9 Chronic kidney disease, unspecified; Z79.82 Long term (current) use of aspirin; Z87.891 Personal history of nicotine dependence; Z95.810 Presence of automatic (implantable) cardiac defibrillator; Z95.3 Presence of xenogenic heart valve